=== PATIENT | female | born 1960 | race Caucasian/White ===

== ENCOUNTER 2017-08-16 10:55 | Emergency (ER) | payer OTHER ==
[~2017-08-16] VITALS: Ht 167.6 cm; Wt 85.3 kg
--- NOTE | 2017-08-16 10:55 | NUR ---
BIBRA 78 FROM [facility]AB C/O WEAKNESS AND HYPERGLYCEMIA, NJ=316DB/DL IN THE FIELD. A/OX 4, BREATHING EVEN AND UNLABORED. NO SOB, NAD, VITALS STABLE. NO NEURO DEFICITS. SAFETY AND COMFORT MEASURES IN PLACE. AWAITING MD ORDERS.
--- NOTE | 2017-08-16 11:10 | NUR ---
CDL B DRIVER AT BEDSIDE FOR BLOOD DRAW.
[2017-08-16 11:15] LABS: BASOPHILS # (AUTO) 0.1 /CMM (0.0-0.2); EOSINOPHILS % (AUTO) 2.2 % (0.0-6.0); HEMATOCRIT 45 % (33-45); HEMOGLOBIN 15.3 g/dL (11.5-14.8); LYMPHOCYTES # (AUTO) 1.9 /CMM (0.8-4.8); LYMPHOCYTES % (AUTO) 26.9 % (20.0-44.0); MEAN CORPUSCULAR HGB CONC 34 g/dl (31.0-36.0); MEAN CORPUSCULAR VOLUME 90 fL (82-100); MONOCYTES # (AUTO) 0.4 /CMM (0.1-1.30); MONOCYTES % (AUTO) 5.5 % (2.0-12.0); NEUTROPHILS # (AUTO) 4.3 /CMM (1.8-8.9); NEUTROPHILS % (AUTO) 64.4 % (43.0-81.0); PLATELET COUNT (AUTO) 240 /CMM (150-450); RDW COEFFICIENT OF VARIATION 12.8 (11.5-15.0); RED BLOOD CELL COUNT(AUTO) 5.06 MIL/uL (4.0-5.2); WHITE BLOOD COUNT (AUTO) 6.9 K/uL (4.3-11.0)
[2017-08-16 11:29] LABS: INR 1.02 (0.85-1.15)
[2017-08-16] MEDS ORDERED: IV NS 0.9% 1,000 ML BAG IV ONE ×2 (11:30→12:30)
[2017-08-16 11:32] LABS: ALANINE AMINOTRANSFERASE 106 U/L (12-78); ALBUMIN 2.6 g/dL (3.4-5.0); ALKALINE PHOSPHATASE 90 U/L (46-116); ASPARTATE AMINOTRANSFERASE 106 U/L (15-37); BILIRUBIN,DIRECT 0.3 mg/dL (0.0-0.2); BILIRUBIN,TOTAL 0.6 mg/dL (0.2-1.0); CALCIUM, SERUM 8.4 mg/dL (8.5-10.1); CARBON DIOXIDE 27 mmol/L (21-32); CHLORIDE 100 mmol/L (98-107); CREATININE 0.8 mg/dL (0.6-1.3); POTASSIUM 4.1 mmol/L (3.5-5.1); SODIUM SERUM 130 mmol/L (136-145); TOTAL PROTEIN, SERUM 6.7 g/dL (6.4-8.2); UREA NITROGEN, BLOOD 9 mg/dL (7-18)
[2017-08-16 11:33] LABS: TROPONIN I < 0.017 ng/mL (0.00-0.056)
[2017-08-16 11:34] LABS: GLUCOSE 499 mg/dL (74-106)
[2017-08-16] MEDS ORDERED: INSULIN REGULAR, HUMAN 100 UNIT/ML 10 ML VIAL ONE (11:48)
[2017-08-16] MEDS ORDERED: INSULIN REGULAR, HUMAN 100 UNIT/ML 10 ML VIAL SQ ONE (12:00)
--- NOTE | 2017-08-16 12:56 | NUR ---
repeat bs 330, dr. gregory informed, stating clear for discharge.
--- NOTE | 2017-08-16 13:03 | NUR ---
IV removed. Catheter intact and site benign. Pressure and 4x4 applied to site. No bleeding noted. Patient discharged to home in stable condition. Written and verbal after care instructions given. Patient verbalizes understanding of instruction.
[2017-08-16 13:04] VITALS: BP 127/86
== END 2017-08-16 13:06 | disposition home or self-care (01) ==
LOC: EDBD 10:56 → ER 10:56
DX: E11.65 Type 2 diabetes mellitus with hyperglycemia (principal); Z91.14 Patient's other noncompliance with medication regimen; I10 Essential (primary) hypertension; F17.210 Nicotine dependence, cigarettes, uncomplicated; Z90.710 Acquired absence of both cervix and uterus; Z79.4 Long term (current) use of insulin
CPT/HCPCS: 36415; 71045; 80048; 80076; 82962 ×2; 84484; 85025; 85730; 93005; 96360; 96361; 96372; 99285; 99406; A4606; J1815; J7030; Z7610

== ENCOUNTER 2019-12-04 20:55 | Inpatient (IN) | payer MEDICARE, OTHER ==
[~2019-12-04] VITALS: Ht 172.7 cm; Wt 81.6 kg
--- NOTE | 2019-12-04 21:05 | NUR ---
LEXUS FROM [facility] TOWARDS STAFF PLACED ON 5150, GD AND DTO @ 1820 ON 12/04/19. PT DENIED SI. PT WAS PLACED ON A MONITOR W/ CLOSE SUPERVISION OF A SITTER. WILL CONT TO MONITOR ,
--- NOTE | 2019-12-04 21:15 | NUR ---
RN SUP GAVE ROOM 213-1
--- NOTE | 2019-12-04 21:19 | NUR ---
COIVD SWAB COLLECTED AND SENT TO LAB
[2019-12-04 21:30] LABS: BASOPHILS # (AUTO) 0.1 /CMM (0.0-0.2); BASOPHILS % (AUTO) 0.8 % (0.0-2.0); EOSINOPHILS % (AUTO) 2.3 % (0.0-6.0); HEMATOCRIT 46 % (33-45); LYMPHOCYTES # (AUTO) 2.9 /CMM (0.8-4.8); LYMPHOCYTES % (AUTO) 33.2 % (20.0-44.0); MEAN CORPUSCULAR HGB CONC 33 g/dl (31.0-36.0); MEAN CORPUSCULAR VOLUME 93 fL (82-100); MONOCYTES # (AUTO) 0.7 /CMM (0.1-1.30); MONOCYTES % (AUTO) 7.6 % (2.0-12.0); NEUTROPHILS # (AUTO) 4.8 /CMM (1.8-8.9); NEUTROPHILS % (AUTO) 56.1 % (43.0-81.0); PLATELET COUNT (AUTO) 185 /CMM (150-450); RED BLOOD CELL COUNT(AUTO) 4.91 MIL/uL (4.0-5.2); WHITE BLOOD COUNT (AUTO) 8.6 K/uL (4.3-11.0)
[2019-12-04 22:01] LABS: CALCIUM, SERUM 8.7 mg/dL (8.5-10.1); CARBON DIOXIDE 28 mmol/L (21-32); CHLORIDE 99 mmol/L (98-107); CREATININE 0.7 mg/dL (0.6-1.3); GLUCOSE 317 mg/dL (74-106); POTASSIUM 3.9 mmol/L (3.5-5.1); SODIUM SERUM 134 mmol/L (136-145); UREA NITROGEN, BLOOD 15 mg/dL (7-18)
--- NOTE | 2019-12-04 22:08 | NUR ---
Dion cabrera in ED - 12/04/19 at 2208 by JOSUÉ KADEEM JAY TALKING TO DR. KIRK REGARDING PT ADMISSION.
[2019-12-04 22:11] LABS: ALANINE AMINOTRANSFERASE 64 U/L (12-78); ALBUMIN 3.1 g/dL (3.4-5.0); ALKALINE PHOSPHATASE 92 U/L (46-116); ASPARTATE AMINOTRANSFERASE 55 U/L (15-37); BILIRUBIN,DIRECT 0.1 mg/dL (0.0-0.2); BILIRUBIN,TOTAL 0.4 mg/dL (0.2-1.0); SALICYLATE 2.9 mg/dL (2.8-20.0); TOTAL PROTEIN, SERUM 6.8 g/dL (6.4-8.2)
[2019-12-04] MEDS ORDERED: INSULIN REGULAR, HUMAN 100 UNIT/ML 10 ML VIAL SQ ONE (22:30)
--- NOTE | 2019-12-04 22:32 | NUR ---
LAB CALLED REGARDING NEGATIVE COVID RESULT.
[2019-12-04] MEDS ORDERED: INSULIN REGULAR, HUMAN 100 UNIT/ML 10 ML VIAL ONE (22:39)
[2019-12-04 22:56] LABS: ACETAMINOPHEN < 2 ug/ml (10-30); ALCOHOL, BLOOD < 3 mg/dL (0-0)
[2019-12-04 23:13] LABS: APPEARANCE,URINE CLEAR (CLEAR); BILIRUBIN,URINE NEGATIVE (NEGATIVE); BLOOD, URINE NEGATIVE Ery/uL (NEGATIVE); COLOR,URINE YELLOW (YELLOW); KETONES,URINE NEGATIVE (NEGATIVE); LEUKOCYTE ESTERASE ,URINE NEGATIVE (NEGATIVE); NITRITE, URINE NEGATIVE (NEGATIVE); PROTEIN,URINE NEGATIVE (NEGATIVE); UGLUCOSE >=1000 mg/dL (NEGATIVE); UROBILINOGEN,URINE 0.2 EU/dL (0.2)
--- NOTE | 2019-12-04 23:37 | NUR ---
REPORT CALLED TO BRIANNA HUFF. WILL TRANSPORT PT TO ROOM 213.
[2019-12-04 23:45] LABS: BACTERIA,URINE None seen /HPF (None Seen); RBC,URINE 0-2 /HPF (0-2); SQUAMOUS EPITHELIAL CELL,UR Few /HPF (None Seen); WBC,URINE 0-2 /HPF (0-3)
[2019-12-05] VITALS: BP 146/77
[2019-12-05] MEDS ORDERED: DEXTROSE 50%-WATER 50 ML DISP.SYRIN IV PRN
--- NOTE | 2019-12-05 | NUR ---
GPS HEAD PIECE ASSEMBLER NOTES: ADMITTED A 59YO FEMALE FROM [facility] ON 5150 HOLD FOR DANGER TO OTHERS AND GRAVE DISABILITY. PER HOLD PATIENT WAS AGGRESSIVE, YELLING AND SCREAMING AT STAFF, BANGING AND REMOVING THINGS FROM THE WALL. PATIENT CAME THROUGH THE ED OF [facility] FOR MEDICAL CLEARANCE. UPON CLEARANCE PATIENT WAS THEN ADMITTED UNDER DR. SANTOS AND DR. K[facility]. UPON FACE TO FACE ASSESSMENT,PATIENT PRESENTS ALERT AND ORIENTED X3, SEEMED ALRIGHT AT FIRST BUT DURING INTERVIEW AND CONTRABANDING PATIENT STARTED TO YELL AT STAFF SINCE SHE WANTS TO KEEP HER PURSE AND SOME BELONGINGS AT HER BEDSIDE. EXPLAINED TO PATIENT THE UNIT RULES HOWEVER, PATIENT CONTINUES TO TALK TO STAFF IN A LOUD AND SARCASTIC MANNER. VITAL SIGNS TAKEN AND RECORDED. BELONGINGS AND CONTRABAND CHECKED. PATIENT REFUSED TO HAVE A FULL SKIN AND BODY ASSESSMENT, PT CLAIMS THAT SHE DOES NOT HAVE ANY WOUND OR SKIN CONDITION AT THE MOMENT. BLOOD GLUCOSE LEVELS CHECKED. DR. KIRK MADE AWARE OF THIS ADMISSION WELL FOR MEDICATION RECONCILIATION. Q15 MIN CHECKS INITIATED. CARE PLAN FORMULATED SPECIFIC FOR THE PATIENT. PATIENT PROVIDED WITH BEDSIDE COMMODE AND WALKER. PATIENT ALSO ADVISED OF THE HOLD. LIMIT SETTING DONE. REALITY RE-ORIENTATION DONE. WILL MONITOR PATIENT FOR MOOD, SAFETY AND BEHAVIOR.
[2019-12-05] MEDS ORDERED: MAGNESIUM HYDROXIDE 30 ML UDC PO PRN ×2 (00:30→13:00)
[2019-12-05] MEDS ORDERED: ACETAMINOPHEN 325 MG TABLET PO PRN ×3 (00:30→13:00)
[2019-12-05] MEDS ORDERED: MAG HYDROX/AL HYDROX/SIMETH 30 ML UDC PO PRN (00:30)
[2019-12-05] MEDS ORDERED: LORAZEPAM 0.5 MG TABLET PO PRN (00:30)
[2019-12-05] MEDS ORDERED: BLOOD SUGAR DIAGNOSTIC 1 EACH STRIP IN ONE (01:00)
[2019-12-05] MEDS ORDERED: QUET50TA PO (01:19)
[2019-12-05] MEDS ORDERED: ESCI5TAB PO (01:19)
[2019-12-05] MEDS ORDERED: INSU100C10 SQ (01:19)
[2019-12-05] MEDS ORDERED: INSU100I26 SQ (01:19)
[2019-12-05] MEDS ORDERED: TRAM50TA2 PO (01:19)
[2019-12-05] MEDS ORDERED: NA P133E RC (01:19)
[2019-12-05] MEDS ORDERED: GABA300C PO (01:19)
[2019-12-05] MEDS ORDERED: OMEP20CA15 PO (01:19)
[2019-12-05] MEDS ORDERED: BUSP5TAB3 PO (01:19)
[2019-12-05] MEDS ORDERED: BISA10SU11 RC (01:19)
[2019-12-05] MEDS ORDERED: HYDR-4384 PO (01:19)
[2019-12-05] MEDS ORDERED: ACET-868 PO (07:12)
[2019-12-05] MEDS ORDERED: MAGN400O6 PO (07:12)
[2019-12-05] MEDS ORDERED: ACET-2605 PO (07:12)
[2019-12-05 08:00] VITALS: BP 134/63
[2019-12-05] MEDS: BLOOD SUGAR DIAGNOSTIC 1 EACH STRIP VI SCH ×4 (08:29→22:02)
--- NOTE | 2019-12-05 09:17 | NUR ---
GPS/RN-NOTES NOTED PATIENT WITH CRYING ,AGITATED ,ANGRY FOCUSING ON GOING OUT STATED" I DON'T BELONG HERE," REDIRECTED AND OFFERED ATIVAN BUT PATIENT SCREAM AND YELLS TO THE SHADING PAINTER. STATED I DON'T TAKE ANY PILLS IF I'M ANGRY,LEAVE ME ALONE I DON'T NEED YOUR MEDICATION". PATIENT BS WAS 229 MG/DL, 6 UNITS OF REGULAR INSULIN NOT GIVEN DUE TO PATIENT REFUSED AND DID NOT EAT HER BREAKFAST.ENCOURAGED AND EXPLAINED RISK AND BENEFITS OF EATING AND GETTING THE INSULIN COVERAGE BUT PATIENT GETS ANGRY AT HE SHADING PAINTER.OFFERED X3 . WILL LET MATE SHIP MADE AWARE OF THE REFUSAL. ALL NEEDS ATTENDED AND ANTICIPATED. WILL CONT. MONITORING FOR SAFETY AND BEHAVIOR.PATIENT ABLE TO AMBULATE IN THE BATHROOM USING WALKER.
[2019-12-05] MEDS: NICOTINE PATCH (21MG) 21 MG PATCH.TD24 TD SCH (09:36)
--- NOTE | 2019-12-05 09:38 | NUR ---
GPS/RN-NOTES PATIENT FINALLY AGREED TO TAKE ATIVAN 0.5MG P.O PRN ORDER. WILL CONT. MONITORING FOR SAFETY AND BEHAVIOR.
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
[2019-12-05] MEDS: LINAGLIPTIN 5 MG TABLET PO SCH (12:00)
[2019-12-05] MEDS ORDERED: SITAGLIPTIN PHOSPHATE 50 MG TABLET PO SCH (12:00)
--- NOTE | 2019-12-05 12:19 | NUR ---
GPS/RN-NOTES PATIENT CRYING, AGITATED YELLING IN THE ROOM COMMERCIAL LIGHT FIXTURE ASSEMBLER CAME TO THE ROOM TO HELP BUT PATIENT SCREAMS AND CURSING AT THE COMMERCIAL LIGHT FIXTURE ASSEMBLER. DR. SANTOS IN THE UNIT WITH VERBAL ORDER OF ATIVAN 1MG X1, COGENTIN 1MG IM X1 AND HALDOL 5MG IM X1. NOTED AND CARRIED OUT.
--- NOTE | 2019-12-05 12:25 | NUR ---
Dr. Head called and reconciled the meds.
[2019-12-05] MEDS ORDERED: BENZTROPINE MESYLATE (2MG/2ML) 2 MG/2 ML AMPUL IM ONE (12:30)
[2019-12-05] MEDS ORDERED: LORAZEPAM INJ 2 MG/ML VIAL IM ONE (12:30)
[2019-12-05] MEDS ORDERED: HALOPERIDOL LACTATE INJ 5 MG/ML VIAL IM ONE (12:30)
--- NOTE | 2019-12-05 12:30 | NUR ---
GPS/RN-NOTES DR. ONEAL MADE AWARE OF PATIENT BS OF 229 MG/DL AND REFUSED THE 6 UNITS COVERAGE.
[2019-12-05] MEDS ORDERED: GABAPENTIN 300 MG CAPSULE PO SCH (13:00)
[2019-12-05] MEDS: HALOPERIDOL 5 MG TABLET PO SCH ×2 (13:00→17:17)
[2019-12-05] MEDS: GABAPENTIN 300 MG CAPSULE PO SCH ×2 (13:00→17:17)
[2019-12-05] MEDS: busPIRone 5 MG TABLET PO SCH ×2 (13:00→17:17)
[2019-12-05] MEDS ORDERED: NA PHOS,M-B/NA PHOS,DI-BA 1 EA ENEMA RC PRN (13:00)
[2019-12-05] MEDS ORDERED: TRAMADOL HCL 50 MG TABLET PO PRN (13:00)
[2019-12-05] MEDS ORDERED: BISACODYL SUPP (10 MG) 10 MG/SUPP.RECT SUPP.RECT RC PRN (13:00)
[2019-12-05] MEDS ORDERED: MISCELLANEOUS MED 1 EA EA PO PRN (13:00)
[2019-12-05 16:00] VITALS: BP 144/86
[2019-12-05] MEDS: INSULIN REGULAR, HUMAN 100 UNIT/ML 3 ML VIAL SQ PRN (17:27)
[2019-12-05 20:00] VITALS: BP 114/59
[2019-12-05] MEDS: INSULIN GLARGINE, 100 UNIT/ML CARTRIDGE SQ SCH (22:08)
[2019-12-05] MEDS: *INSULIN REGULAR(HUMULIN R)HUM 100 UNIT/ML VIAL SQ PRN (22:12)
--- NOTE | 2019-12-05 22:18 | NUR ---
GPS RN NOTES: ACCU CHEK DONE AT 2200, BS 197MG/DL. INSULIN ADMINISTERED ORDERED. PT CALM AND COOPERATIVE. NO S/S OF DISTRESS. WILL CONTINUE TO MONITOR.
--- NOTE | 2019-12-06 06:52 | NUR ---
GPS RN CLOSING NOTES: PT IS LAYING ON BED SLEEPING. NO BEHAVIORAL ISSUES THIS SHIFT. PT SLEPT FOR 8 HR. NO S/S OF DISTRESS, RESPIRATION EVEN AND UNLABORED WITH EQUAL RISE AND FALL OF THE CHEST ON ROOM AIR. PT IS MED COMPLIANT. ALL PT CARE NEEDS MET ANTICIPATED. WILL CONTINUE TO MONITOR AND ENDORSE TO AM SHIFT
[2019-12-06] MEDS: BLOOD SUGAR DIAGNOSTIC 1 EACH STRIP VI SCH ×4 (07:33→21:50)
[2019-12-06 07:40] LABS: BASOPHILS # (AUTO) 0.1 /CMM (0.0-0.2); BASOPHILS % (AUTO) 1.3 % (0.0-2.0); EOSINOPHILS % (AUTO) 1.8 % (0.0-6.0); HEMATOCRIT 47 % (33-45); HEMOGLOBIN 15.8 g/dL (11.5-14.8); LYMPHOCYTES # (AUTO) 2.6 /CMM (0.8-4.8); LYMPHOCYTES % (AUTO) 33.9 % (20.0-44.0); MEAN CORPUSCULAR HGB CONC 33 g/dl (31.0-36.0); MEAN CORPUSCULAR VOLUME 93 fL (82-100); MONOCYTES # (AUTO) 0.6 /CMM (0.1-1.30); NEUTROPHILS # (AUTO) 4.2 /CMM (1.8-8.9); PLATELET COUNT (AUTO) 183 /CMM (150-450); RED BLOOD CELL COUNT(AUTO) 5.11 MIL/uL (4.0-5.2); WHITE BLOOD COUNT (AUTO) 7.7 K/uL (4.3-11.0)
[2019-12-06] MEDS: PANTOPRAZOLE 40 MG TABLET.DR PO SCH (07:54)
[2019-12-06 08:00] VITALS: BP 148/77
[2019-12-06] MEDS: LINAGLIPTIN 5 MG TABLET PO SCH (08:00)
[2019-12-06] MEDS: GABAPENTIN 300 MG CAPSULE PO SCH ×3 (08:00→16:32)
[2019-12-06] MEDS: busPIRone 5 MG TABLET PO SCH ×3 (08:00→16:33)
[2019-12-06] MEDS: NICOTINE PATCH (21MG) 21 MG PATCH.TD24 TD SCH (08:01)
[2019-12-06] MEDS: HALOPERIDOL 5 MG TABLET PO SCH ×3 (08:01→16:33)
[2019-12-06 08:08] LABS: THYROID STIMULATING HORMONE 0.486 uIU/mL (0.358-3.74); URIC ACID 5.1 mg/dL (2.6-7.2)
[2019-12-06 08:30] LABS: CALCIUM, SERUM 8.7 mg/dL (8.5-10.1); CREATININE 0.6 mg/dL (0.6-1.3); MAGNESIUM 1.9 mg/dL (1.8-2.4); PHOSPHORUS 3.3 mg/dL (2.5-4.9); POTASSIUM 4.2 mmol/L (3.5-5.1)
[2019-12-06] MEDS: INSULIN REGULAR, HUMAN 100 UNIT/ML 3 ML VIAL SQ PRN ×3 (08:43→17:18)
[2019-12-06] MEDS: LORAZEPAM 0.5 MG TABLET PO PRN (15:29)
--- NOTE | 2019-12-06 15:29 | NUR ---
GPS/RN-NOTES PATIENT REQUESTING ATIVAN FOR ANXIETY. ATIVAN 1MG P.O GIVEN PRN ORDER. WILL CONT. MONITORING FOR SAFETY AND BEHAVIOR.
[2019-12-06 16:00] VITALS: BP 147/88
--- NOTE | 2019-12-06 16:37 | NUR ---
GPS/RN-NOTES PATIENT IN THE DAY ROOM WATCHING TV,CALM,NO ACUTE DISTRESS NOTED.
[2019-12-06 21:00] VITALS: BP 116/64
[2019-12-06] MEDS: INSULIN GLARGINE, 100 UNIT/ML CARTRIDGE SQ SCH (21:42)
[2019-12-06] MEDS: *INSULIN REGULAR(HUMULIN R)HUM 100 UNIT/ML VIAL SQ PRN (21:43)
--- NOTE | 2019-12-06 21:51 | NUR ---
GPS RN NOTE: PT BLOOD SUGAR AT 2135, 268MG/DL. HS LANTUS ADMINISTERED. REGULAR INSULIN 6UNITS ADMINISTERED PER SLIDING SCALE ORDER. WILL CONTINUE TO MONITOR.
--- NOTE | 2019-12-07 06:35 | NUR ---
GPS RN CLOSING NOTES: PT IS LAYING ON BED SLEEPING. NO BEHAVIORAL ISSUES THIS SHIFT. PT SLEPT FOR 8 HR. NO S/S OF DISTRESS, RESPIRATION EVEN AND UNLABORED WITH EQUAL RISE AND FALL OF THE CHEST ON ROOM AIR. ALL PT CARE NEEDS MET ANTICIPATED. WILL CONTINUE TO MONITOR AND ENDORSE TO AM SHIFT
[2019-12-07] MEDS: PANTOPRAZOLE 40 MG TABLET.DR PO SCH (07:56)
[2019-12-07] MEDS: BLOOD SUGAR DIAGNOSTIC 1 EACH STRIP VI SCH ×4 (07:56→21:33)
[2019-12-07] MEDS: INSULIN REGULAR, HUMAN 100 UNIT/ML 3 ML VIAL SQ PRN ×3 (07:58→16:56)
[2019-12-07 08:00] VITALS: BP 149/92
[2019-12-07] MEDS: NICOTINE PATCH (21MG) 21 MG PATCH.TD24 TD SCH (08:00)
[2019-12-07] MEDS: busPIRone 5 MG TABLET PO SCH ×3 (08:02→16:44)
[2019-12-07] MEDS: LINAGLIPTIN 5 MG TABLET PO SCH (08:02)
[2019-12-07] MEDS: GABAPENTIN 300 MG CAPSULE PO SCH ×3 (08:02→16:44)
[2019-12-07] MEDS: HALOPERIDOL 5 MG TABLET PO SCH (08:02)
[2019-12-07] MEDS ORDERED: diphenhydrAMINE HCL 50 MG/ML VIAL IV ONE (10:30)
--- NOTE | 2019-12-07 10:33 | NUR ---
RN NOTES PT ALIZA ND EVALUATED BY DR. SANTOS, PT CONCERNED ABOUT HER TONGUE. MD ORDERED BENADRYL 50MG IM NOW. WILL CONTINUE TO MONITOR.
--- NOTE | 2019-12-07 10:47 | NUR ---
RN NOTES IM BENADRYL 50MG ADMINISTERED TO LEFT BUTTOCK MUSCLE. PT AWARE AND AWAITING FOR EFFECTIVENESS. WILL REASSESS.
--- NOTE | 2019-12-07 11:07 | NUR ---
RN NOTES PT REPORTED FEELS BETTER. PT ALSO RECITED ABC'S. /DANIELLE IN THE UNIT AND MADE HER AWARE OF EFFECTIVENESS. ALSO ORDERED TO DISCONTINUE HALDOL, START COGENTIN 0.5MG TID AND SHE WILL PUT ORDER FOR RISPERDAL FOR 5PM.
[2019-12-07] MEDS ORDERED: BENZTROPINE MESYLATE (1 MG) 1 MG TABLET PO SCH (13:00)
[2019-12-07 16:00] VITALS: BP 136/90
--- NOTE | 2019-12-07 16:38 | NUR ---
RN NOTES PT REPORTED PROTRUDING TONGUE AND DIFFICULTY SPEAKING AGAIN AT THIS TIME. CALLED DR. SANTOS AND ORDERD TO MAKE COGENTIN 1MG PO TO TID AND HS. BUT GIVE COGENTIN IM 2MG NOW, SKIP 5PM 1MG COGENTIN PO. THEN CONTINUE BACK TO COGENTIN HS. DISCONTINUE RISPERDAL WELL. CHARGE NURSE MADE AWARE WELL.
[2019-12-07] MEDS ORDERED: BENZTROPINE MESYLATE (2MG/2ML) 2 MG/2 ML AMPUL IM ONE (16:40)
[2019-12-07] MEDS: BENZTROPINE MESYLATE (1 MG) 1 MG TABLET PO SCH ×2 (16:45→21:32)
--- NOTE | 2019-12-07 16:53 | NUR ---
RN NOTES ADMINISTERED COGENTIN 2MG IM TO RIGHT BUTTOCK/MUSCLE. PT AWARE AND COOPERATIVE. WILL WAIT FOR EFFECTIVENESS.
[2019-12-07] MEDS ORDERED: risperiDONE 1 MG TABLET PO SCH (17:00)
[2019-12-07 19:35] VITALS: BP 143/70
[2019-12-07] MEDS: TEMAZEPAM 7.5 MG CAPSULE PO PRN (21:32)
[2019-12-07] MEDS: INSULIN GLARGINE, 100 UNIT/ML CARTRIDGE SQ SCH (21:34)
[2019-12-08] MEDS: HYDROCODONE/APAP 5/325MG TABLET PO PRN (02:01)
[2019-12-08] MEDS: BLOOD SUGAR DIAGNOSTIC 1 EACH STRIP VI SCH ×4 (07:25→21:48)
[2019-12-08] MEDS: INSULIN REGULAR, HUMAN 100 UNIT/ML 3 ML VIAL SQ PRN ×2 (07:32→11:55)
[2019-12-08] MEDS: glipiZIDE 10 MG TABLET PO SCH ×2 (07:58→17:12)
[2019-12-08] MEDS: PANTOPRAZOLE 40 MG TABLET.DR PO SCH (07:58)
[2019-12-08 08:00] VITALS: BP 142/75
[2019-12-08] MEDS: LINAGLIPTIN 5 MG TABLET PO SCH (08:44)
[2019-12-08] MEDS: busPIRone 5 MG TABLET PO SCH ×3 (08:44→17:50)
[2019-12-08] MEDS: NICOTINE PATCH (21MG) 21 MG PATCH.TD24 TD SCH (08:44)
[2019-12-08] MEDS: GABAPENTIN 300 MG CAPSULE PO SCH ×3 (08:44→17:11)
[2019-12-08] MEDS: BENZTROPINE MESYLATE (1 MG) 1 MG TABLET PO SCH ×4 (08:45→21:47)
[2019-12-08] MEDS ORDERED: risperiDONE 1 MG TABLET PO SCH (09:00)
[2019-12-08] MEDS: risperiDONE 0.25 MG TABLET PO SCH ×2 (12:07→17:12)
[2019-12-08 16:00] VITALS: BP 138/86
[2019-12-08 19:45] VITALS: BP 148/82
[2019-12-08] MEDS: INSULIN GLARGINE, 100 UNIT/ML CARTRIDGE SQ SCH (21:50)
[2019-12-08] MEDS: *INSULIN REGULAR(HUMULIN R)HUM 100 UNIT/ML VIAL SQ PRN (21:52)
[2019-12-08 22:32] VITALS: BP 112/79
[2019-12-08] MEDS: TEMAZEPAM 7.5 MG CAPSULE PO PRN (22:35)
--- NOTE | 2019-12-08 22:36 | NUR ---
GPS RN NOTES: INSOMNIA PT C/O OF UNABLE TO SLEEP. PT REQUESTED SLEEPING MEDICATION. VITALS CHECKED WNL. OFFERED RESTORIL 7.5MG PO PRN ORDERED. PT AGREED AND TOLERATED MEDICATION WELL. CONTIN UE TO MONITOR.
[2019-12-09 02:10] VITALS: BP 113/62
[2019-12-09] MEDS: HYDROCODONE/APAP 5/325MG TABLET PO PRN ×3 (02:15→21:38)
--- NOTE | 2019-12-09 02:17 | NUR ---
GPS RN NOTES: PAIN PT C/O OF 12/03 LOWER BACK PAIN. VITALS CHECKED WNL. OFFERED NORCO PRN PO ORDERED. PT AGREED AND TOLERATED MEDICATION ELL. CONTINUE TO MONITOR.
[2019-12-09] MEDS: BLOOD SUGAR DIAGNOSTIC 1 EACH STRIP VI SCH ×4 (07:30→21:22)
[2019-12-09] MEDS: INSULIN REGULAR, HUMAN 100 UNIT/ML 3 ML VIAL SQ PRN ×3 (07:33→17:20)
[2019-12-09] MEDS: glipiZIDE 10 MG TABLET PO SCH ×2 (07:53→17:04)
[2019-12-09] MEDS: PANTOPRAZOLE 40 MG TABLET.DR PO SCH (07:53)
[2019-12-09 08:00] VITALS: BP 93/58
[2019-12-09] MEDS: BENZTROPINE MESYLATE (1 MG) 1 MG TABLET PO SCH ×4 (08:10→21:07)
[2019-12-09] MEDS: GABAPENTIN 300 MG CAPSULE PO SCH ×3 (08:10→17:04)
[2019-12-09] MEDS: NICOTINE PATCH (21MG) 21 MG PATCH.TD24 TD SCH (08:10)
[2019-12-09] MEDS: LINAGLIPTIN 5 MG TABLET PO SCH (08:10)
[2019-12-09] MEDS: busPIRone 5 MG TABLET PO SCH ×3 (08:10→17:04)
[2019-12-09] MEDS: risperiDONE 0.25 MG TABLET PO SCH ×3 (08:11→17:04)
--- NOTE | 2019-12-09 08:44 | NUR ---
RN NOTE: PAIN PT C/O 9/10 LOWER BACK AND BILAT KNEES PAIN. MEDICATED WITH NORCO PO PRN ORDERED
--- NOTE | 2019-12-09 14:57 | NUR ---
COORDINATION OF CARE: DEMARCUS faxed patient's referral packet to [facility] [address] [place] [address] ([phone] [phone]) attention to Pv Design Engineer -John. Patient is accepted to the facility for placement upon discharge.
[2019-12-09 16:00] VITALS: BP 127/80
[2019-12-09] MEDS: METFORMIN 500 MG TABLET PO SCH (17:04)
[2019-12-09 19:50] VITALS: BP 135/74
[2019-12-09] MEDS: INSULIN GLARGINE, 100 UNIT/ML CARTRIDGE SQ SCH (21:17)
[2019-12-09] MEDS: *INSULIN REGULAR(HUMULIN R)HUM 100 UNIT/ML VIAL SQ PRN (21:19)
--- NOTE | 2019-12-09 21:45 | NUR ---
GPS RN NOTE: PAIN PT COMPLAINED OF 9/10 KNEE AND LEG PAIN, REQUESTED NORCO, ADMIN NORCO PRN @ 2022. WILL REASSESS AND CONTINUE TO MONITOR Q15MIN FOR SAFETY AND BEHAVIOR.
[2019-12-09] MEDS: TEMAZEPAM 7.5 MG CAPSULE PO PRN (22:53)
--- NOTE | 2019-12-09 22:58 | NUR ---
GPS RN NOTE: INSOMNIA PT COMPLAINED OF HAVING TROUBLE SLEEPING, REQUESTED IF SHE WAS ABLE TO TAKE SOMETHING FOR IT. VSS, BP: 115/52, HR 86, O2: 98% RA, RR: 19. ADMIN RESTORIL PRN @ 2253, WILL REASSESS AND CONTINUE TO MONITOR Q15MIN FOR SAFETY AND BEHAVIOR
[2019-12-10] MEDS: LORAZEPAM 0.5 MG TABLET PO PRN ×2 (01:46→15:11)
--- NOTE | 2019-12-10 01:52 | NUR ---
GPS RN NOTE: ANXIETY PT C/O OF FEELING ANXIOUS. RESTLESS, INABILITY TO SIT STILL. ADMIN ATIVAN PRN @ 0146. WILL REASSESS AND CONTINUE TO MONITOR Q15MIN FOR SAFETY AND BEHAVIOR
[2019-12-10] MEDS: BLOOD SUGAR DIAGNOSTIC 1 EACH STRIP VI SCH ×4 (06:50→21:45)
[2019-12-10 08:00] VITALS: BP 114/59
[2019-12-10] MEDS: LINAGLIPTIN 5 MG TABLET PO SCH (08:08)
[2019-12-10] MEDS: NICOTINE PATCH (21MG) 21 MG PATCH.TD24 TD SCH (08:09)
[2019-12-10] MEDS: GABAPENTIN 300 MG CAPSULE PO SCH ×3 (08:09→16:42)
[2019-12-10] MEDS: PANTOPRAZOLE 40 MG TABLET.DR PO SCH (08:09)
[2019-12-10] MEDS: glipiZIDE 10 MG TABLET PO SCH ×2 (08:09→16:42)
[2019-12-10] MEDS: risperiDONE 0.25 MG TABLET PO SCH ×3 (08:09→16:47)
[2019-12-10] MEDS: busPIRone 5 MG TABLET PO SCH ×3 (08:09→16:43)
[2019-12-10] MEDS: BENZTROPINE MESYLATE (1 MG) 1 MG TABLET PO SCH ×4 (08:10→21:32)
[2019-12-10] MEDS: METFORMIN 500 MG TABLET PO SCH ×2 (08:18→16:43)
[2019-12-10] MEDS: INSULIN REGULAR, HUMAN 100 UNIT/ML 3 ML VIAL SQ PRN (11:36)
[2019-12-10] MEDS: HYDROCODONE/APAP 5/325MG TABLET PO PRN (12:39)
--- NOTE | 2019-12-10 12:41 | NUR ---
GPS RN NOTE: PAIN PT COMPLAINED OF KNEE AND LEG PAIN, REQUESTED NORCO, ADMIN NORCO 5-325 2 TAB GIVEN PRN WILL REASSESS AND CONTINUE TO MONITOR Q15MIN FOR SAFETY AND BEHAVIOR.WAS PULED ONE TAB THER SECOND ONE .
--- NOTE | 2019-12-10 13:43 | NUR ---
PROBABLE CAUSE HEARING: Patient had probable cause hearing today which was upheld for grave disability.
[2019-12-10 16:00] VITALS: BP 128/61
[2019-12-10 20:00] VITALS: BP 134/88
[2019-12-10] MEDS: INSULIN GLARGINE, 100 UNIT/ML CARTRIDGE SQ SCH (21:39)
[2019-12-10] MEDS: *INSULIN REGULAR(HUMULIN R)HUM 100 UNIT/ML VIAL SQ PRN (21:40)
[2019-12-11] MEDS: HYDROCODONE/APAP 5/325MG TABLET PO PRN ×3 (04:40→21:34)
--- NOTE | 2019-12-11 04:45 | NUR ---
RN NOTES PATIENT COMPLAINING OF LEG PAIN 10/10, PRN NORCO 5/325 ADMINISTERED. WILL CONTINUE TO MONITOR.
[2019-12-11] MEDS: PANTOPRAZOLE 40 MG TABLET.DR PO SCH (07:53)
[2019-12-11] MEDS: BLOOD SUGAR DIAGNOSTIC 1 EACH STRIP VI SCH ×4 (07:53→21:03)
[2019-12-11] MEDS: glipiZIDE 10 MG TABLET PO SCH ×2 (07:54→16:26)
[2019-12-11] MEDS: busPIRone 5 MG TABLET PO SCH ×3 (08:00→16:27)
[2019-12-11] MEDS: BENZTROPINE MESYLATE (1 MG) 1 MG TABLET PO SCH ×4 (08:00→21:15)
[2019-12-11] MEDS: METFORMIN 500 MG TABLET PO SCH ×2 (08:00→16:27)
[2019-12-11] MEDS: GABAPENTIN 300 MG CAPSULE PO SCH ×3 (08:00→16:27)
[2019-12-11] MEDS: LINAGLIPTIN 5 MG TABLET PO SCH (08:00)
[2019-12-11] MEDS: NICOTINE PATCH (21MG) 21 MG PATCH.TD24 TD SCH (08:01)
[2019-12-11] MEDS: risperiDONE 0.25 MG TABLET PO SCH ×3 (08:01→16:27)
[2019-12-11 08:43] VITALS: BP 105/61
--- NOTE | 2019-12-11 12:17 | NUR ---
GPS RN NOTE: PAIN PT COMPLAINED OF KNEE AND LEG PAIN 12/03, REQUESTED NORCO, ADMIN NORCO 5-325 2 TAB GIVEN PRN WILL REASSESS AND CONTINUE TO MONITOR Q15MIN FOR SAFETY AND BEHAVIOR.
[2019-12-11 16:00] VITALS: BP 144/91
[2019-12-11 19:57] VITALS: BP 128/67
[2019-12-11] MEDS: *INSULIN REGULAR(HUMULIN R)HUM 100 UNIT/ML VIAL SQ PRN (21:05)
[2019-12-11] MEDS: INSULIN GLARGINE, 100 UNIT/ML CARTRIDGE SQ SCH (21:06)
--- NOTE | 2019-12-11 21:34 | NUR ---
GPS/RN NOTES: PATIENT COMPLAINED OF LEG AND KNEE PAIN 8/10, PRN NORCO 5/325 ADMINISTERED 2TABS ORDERED. VS STABLE. WILL CONTINUE TO MONITOR ACCORDINGLY.
[2019-12-11] MEDS: TEMAZEPAM 7.5 MG CAPSULE PO PRN (22:34)
--- NOTE | 2019-12-11 22:34 | NUR ---
GPS/RN NOTES: PATIENT REQUESTED OF SLEEPING MEDICATION. VS STABLE AND WNL. PRN RESTORIL 7.5MG 1 CAP ADMINISTERED ORDERED. WILL CONTINUE TO MONITOR ACCORDINGLY.
[2019-12-12] MEDS: BLOOD SUGAR DIAGNOSTIC 1 EACH STRIP VI SCH (07:43)
[2019-12-12 08:00] VITALS: BP 90/63
--- NOTE | 2019-12-12 08:13 | NUR ---
SW DISCHARGE NOTE: Patient will be discharged to [facility] [address] [place] [address] ([phone]) via Ambulance transportation at 11:00am today. Conference Center Manager spoke with Lorena, Director Of Corporate Responsibility at the facility, who confirmed patient will be accepted at their facility today. Patient is alert and oriented x4. Patient is not able to plan for self-care at this time but is willing to accept care provided for her at the facility. Patient denies suicidal or homicidal ideation. Patient is aware and agreeable with discharge plans. Patient presents with euthymic mood and congruent affect. Patient will follow-up with Psychiatrist Dr. Joy [address] [facility], [place] [address] ([phone]) and Circular Sawyer Helper Dr. Arteaga [address] [place] [address] ([phone]). Patient does not have a support system or family involved in her care.
[2019-12-12] MEDS: BENZTROPINE MESYLATE (1 MG) 1 MG TABLET PO SCH (08:23)
[2019-12-12] MEDS: GABAPENTIN 300 MG CAPSULE PO SCH (08:23)
[2019-12-12] MEDS: NICOTINE PATCH (21MG) 21 MG PATCH.TD24 TD SCH (08:23)
[2019-12-12] MEDS: METFORMIN 500 MG TABLET PO SCH (08:23)
[2019-12-12] MEDS: LINAGLIPTIN 5 MG TABLET PO SCH (08:23)
[2019-12-12] MEDS: risperiDONE 0.25 MG TABLET PO SCH (08:24)
[2019-12-12] MEDS: busPIRone 5 MG TABLET PO SCH (08:24)
[2019-12-12] MEDS: PANTOPRAZOLE 40 MG TABLET.DR PO SCH (08:24)
[2019-12-12] MEDS: glipiZIDE 10 MG TABLET PO SCH (08:24)
[2019-12-12] MEDS: HYDROCODONE/APAP 5/325MG TABLET PO PRN (08:28)
[2019-12-12] MEDS: LORAZEPAM 0.5 MG TABLET PO PRN (08:28)
--- NOTE | 2019-12-12 09:00 | NUR ---
gps avionics systems repairer: notes pt for discharge to snf at 1000 per director social service. order received from dr. medina per cn re: discharge to snf. pt has no family involved in her care per s.w. pt aware and agreed of discharge to snf. will continue to monitor.
--- NOTE | 2019-12-12 09:20 | NUR ---
gps hoop riveter: notes called [facility] 2x and was on hold for more than 10 minutes, per bobbin cleaning machine operator, crusher supervisor will call me back for report.
--- NOTE | 2019-12-12 09:30 | NUR ---
gps classroom paraprofessional: notes discharge instructions given to pt and verbalized understanding. ambulance to pick her up at 1000 am. pt stable for discharge. hold was discontinued, pt denied si/hi and denied auditory/visual hallucinations at this time. will continue to monitor.
--- NOTE | 2019-12-12 09:45 | NUR ---
gps byproducts extractor: notes [facility] returned call and report given to marilu (rn) for continuity of care.
--- NOTE | 2019-12-12 10:10 | NUR ---
gps moisture conditioner operator: notes ambulance here to warehouse picker pt, report given to one of the crew.
--- NOTE | 2019-12-12 10:19 | NUR ---
gps laser specialist: discharged discharge to snf via ambulance in stable condition. pt denied si/hi and denied auditory/visual hallucinations. all valuables returned to pt. vss
== END 2019-12-12 10:20 | DRG 885 ==
LOC: ER 20:57 → GPS 21:51
PROVIDERS: ADMIT Psychiatry & Neurology Psychosomatic Medicine; ATTEND Internal Medicine Nephrology
DX: F25.0 Schizoaffective disorder, bipolar type (principal); E43 Unspecified severe protein-calorie malnutrition; E87.1 Hypo-osmolality and hyponatremia; F29 Unspecified psychosis not due to a substance or known physiological condition; F39 Unspecified mood [affective] disorder; Z68.27 Body mass index [BMI] 27.0-27.9, adult; G31.84 Mild cognitive impairment of uncertain or unknown etiology; I10 Essential (primary) hypertension; J44.9 Chronic obstructive pulmonary disease, unspecified; K21.9 Gastro-esophageal reflux disease without esophagitis; E78.5 Hyperlipidemia, unspecified; E11.65 Type 2 diabetes mellitus with hyperglycemia; F17.210 Nicotine dependence, cigarettes, uncomplicated; F32.9 Major depressive disorder, single episode, unspecified; F41.9 Anxiety disorder, unspecified; Z90.710 Acquired absence of both cervix and uterus; G89.29 Other chronic pain; F12.90 Cannabis use, unspecified, uncomplicated; Z91.81 History of falling; Z73.6 Limitation of activities due to disability
CPT/HCPCS: 36415; 80048-TC; 80061-TC; 80076-TC; 80305; 81000-TC; 82962-TC; 83735-TC; 84100-TC; 84443-TC; 84550-TC; 85025-TC; 87081-TC; 97116-TC; 97530-TC; G0480; J0515; J1200; J1630; J1815; J2060

== ENCOUNTER 2022-01-03 18:22 | Inpatient (IN) | payer MEDICARE, OTHER ==
[~2022-01-03] VITALS: Ht 172.7 cm; Wt 117.5 kg
[~2022-01-03 18:22] MED LIST: ACET-2605 PO; ACET-868 PO; BISA10SU11 RC; GABA300C PO; HYDR-4384 PO; INSU100C10 SQ; INSU100I26 SQ; MAGN400O6 PO; NA P133E RC; OMEP20CA15 PO; TRAM50TA2 PO
--- NOTE | 2022-01-03 19:20 | NUR ---
NAWAF BETHEA 99 FROM [facility] FOR SOB. PT A/OX2. ON NRB 15LPM SATTING AT 98%. CONNECTED PT TO POX AND MONITOR. SAFETY MEASURES IN PLACE.
--- NOTE | 2022-01-03 19:24 | NUR ---
COVID ANTIGEN SWAB COLLECTED AND SENT TO LAB [facility] #18G S/L PT SATTING 98% ON NRB 15LPM
--- NOTE | 2022-01-03 19:47 | NUR ---
DR. MARTINEZ DO AT PT'S BEDSIDE
[2022-01-03 19:52] LABS: BASOPHILS # (AUTO) 0.1 K/uL (0.0-0.2); BASOPHILS % (AUTO) 0.3 % (0.0-2.0); EOSINOPHILS % (AUTO) 0.1 % (0.0-6.0); HEMATOCRIT 32 % (33-45); HEMOGLOBIN 10.7 g/dL (11.5-14.8); LYMPHOCYTES # (AUTO) 1.3 K/uL (0.8-4.8); LYMPHOCYTES % (AUTO) 5.8 % (20.0-44.0); MEAN CORPUSCULAR HGB CONC 33 g/dl (31.0-36.0); MEAN CORPUSCULAR VOLUME 92 fL (82-100); MONOCYTES # (AUTO) 1.3 K/uL (0.1-1.30); MONOCYTES % (AUTO) 6.2 % (2.0-12.0); NEUTROPHILS # (AUTO) 18.9 K/uL (1.8-8.9); NEUTROPHILS % (AUTO) 87.6 % (43.0-81.0); PLATELET COUNT (AUTO) 288 K/uL (150-450); RED BLOOD CELL COUNT(AUTO) 3.53 MIL/uL (4.0-5.2); WHITE BLOOD COUNT (AUTO) 21.6 K/uL (4.3-11.0)
[2022-01-03 19:54] LABS: CALCIUM, SERUM 7.6 mg/dL (8.5-10.1); CARBON DIOXIDE 33 mmol/L (21-32); CHLORIDE 98 mmol/L (98-107); CREATININE 1.1 mg/dL (0.6-1.3); GLUCOSE 244 mg/dL (74-106); POTASSIUM 5.2 mmol/L (3.5-5.1); SODIUM SERUM 131 mmol/L (136-145); UREA NITROGEN, BLOOD 62 mg/dL (7-18)
[2022-01-03] MEDS ORDERED: IV NS 0.9% 1,000 ML BAG IV ONE (20:00)
[2022-01-03] MEDS ORDERED: CEFEPIME 1 GM in IV D5W 50 ML IV ONE (20:00)
[2022-01-03] MEDS ORDERED: VANCOMYCIN 1 GM in IV D5W 250 ML IV ONE (20:00)
[2022-01-03] MEDS ORDERED: CEFEPIME 1 GM VIAL ONE (20:08)
[2022-01-03] MEDS ORDERED: VANCOMYCIN 1 GM VIAL ONE (20:08)
--- NOTE | 2022-01-03 20:31 | NUR ---
INSERTED 16FR F/C URINE COLLECTED AND SENT TO LAB
--- NOTE | 2022-01-03 20:55 | NUR ---
TITRATED NRB FROM 15LPM TO 10 LPM. TOLERATING AT 97%
[2022-01-03 21:04] LABS: BILIRUBIN,URINE NEGATIVE (NEGATIVE); COLOR,URINE YELLOW (YELLOW); LEUKOCYTE ESTERASE ,URINE NEGATIVE (NEGATIVE); NITRITE, URINE NEGATIVE (NEGATIVE); PH,URINE 5.5 (5.0-8.0); PROTEIN,URINE NEGATIVE (NEGATIVE); UGLUCOSE NEGATIVE (NEGATIVE); UROBILINOGEN,URINE 0.2 EU/dL (0.2)
--- NOTE | 2022-01-03 21:38 | NUR ---
DR Juan Carlos SAENZ.
--- NOTE | 2022-01-03 21:42 | NUR ---
DR ALAMO DO ER ON PHONE CALL WITH DR ONEAL
[2022-01-03] MEDS ORDERED: MULT-447 PO (22:10)
[2022-01-03] MEDS ORDERED: GABA600T12 PO (22:10)
[2022-01-03] MEDS ORDERED: LEVA0.6320 NEB (22:10)
[2022-01-03] MEDS ORDERED: ZINC220T3 PO (22:10)
[2022-01-03] MEDS ORDERED: BETAMETHASONE DIPROPIONATE TOP (22:10)
[2022-01-03] MEDS ORDERED: INSU100V10 SQ (22:10)
[2022-01-03] MEDS ORDERED: ACET325C7 PO ×2 (22:10)
[2022-01-03] MEDS ORDERED: CLOTRIMAZOLE TOP (22:10)
[2022-01-03] MEDS ORDERED: INSU100V42 SQ (22:10)
[2022-01-03] MEDS ORDERED: NICO-676 TP (22:10)
[2022-01-03] MEDS ORDERED: LISI-768 PO (22:10)
[2022-01-03] MEDS ORDERED: FOLI1TAB34 PO (22:10)
[2022-01-03] MEDS ORDERED: QUET100T PO (22:10)
[2022-01-03] MEDS ORDERED: CIPR400P6 IV (22:10)
[2022-01-03] MEDS ORDERED: ATOR20TA PO (22:10)
[2022-01-03] MEDS ORDERED: POVI1MED TP (22:10)
[2022-01-03] MEDS ORDERED: BUSP10TA3 PO (22:10)
[2022-01-03] MEDS ORDERED: ESCI5TAB PO (22:10)
[2022-01-03] MEDS ORDERED: ENOX40DI SQ (22:10)
[2022-01-03] MEDS ORDERED: ASPI-1420 PO (22:10)
[2022-01-03] MEDS ORDERED: LINA5TAB PO (22:10)
[2022-01-03] MEDS ORDERED: ASCO-352 PO (22:10)
--- NOTE | 2022-01-03 23:48 | NUR ---
PER DR. LORD ORDERS: INITIATED NS @ 65ML/HR KATRIN MIDLINE #18 S/L; TOLERATING WELL
[2022-01-04] MEDS ORDERED: IV NS 0.9% 1,000 ML IV PRN (03:30)
--- NOTE | 2022-01-04 04:33 | NUR ---
QUALITY CONTROL SYSTEMS MANAGER AT PT'S BEDSIDE
[2022-01-04 04:44] LABS: BASOPHILS # (AUTO) 0.1 K/uL (0.0-0.2); BASOPHILS % (AUTO) 0.3 % (0.0-2.0); EOSINOPHILS % (AUTO) 0.1 % (0.0-6.0); HEMATOCRIT 27 % (33-45); HEMOGLOBIN 8.7 g/dL (11.5-14.8); LYMPHOCYTES % (AUTO) 4.7 % (20.0-44.0); MEAN CORPUSCULAR HGB CONC 33 g/dl (31.0-36.0); MEAN CORPUSCULAR VOLUME 92 fL (82-100); MONOCYTES % (AUTO) 4.7 % (2.0-12.0); NEUTROPHILS # (AUTO) 19.9 K/uL (1.8-8.9); NEUTROPHILS % (AUTO) 90.2 % (43.0-81.0); PLATELET COUNT (AUTO) 293 K/uL (150-450); RED BLOOD CELL COUNT(AUTO) 2.92 MIL/uL (4.0-5.2)
[2022-01-04 05:00] LABS: CALCIUM, SERUM 7.2 mg/dL (8.5-10.1); CREATININE 1.2 mg/dL (0.6-1.3); POTASSIUM 5.7 mmol/L (3.5-5.1)
[2022-01-04] MEDS ORDERED: PANTOPRAZOLE 40 MG VIAL IV SCH (07:30)
[2022-01-04] MEDS ORDERED: CLOT15CR5 TP (07:43)
[2022-01-04] MEDS ORDERED: DOCU-141 PO (07:43)
[2022-01-04] MEDS ORDERED: ACETAMINOPHEN 325 MG TABLET PO PRN (08:00)
[2022-01-04] MEDS ORDERED: ZOSYN IVPB 3.375 G in IV D5W 50ml IV SCH (08:12)
[2022-01-04] MEDS ORDERED: PIPERACILLIN /TAZOBACTAM 3.375 G VIAL IV ONE (08:22)
[2022-01-04] MEDS ORDERED: PANTOPRAZOLE 40 MG VIAL ONE (08:22)
--- NOTE | 2022-01-04 08:58 | NUR ---
REPORT GIVEN TO DAYNA FOR JEANINE
[2022-01-04] MEDS: LISINOPRIL (5MG) 5 MG TABLET PO SCH (09:00)
[2022-01-04] MEDS ORDERED: ENOXAPARIN SODIUM 40 MG/0.4 ML DISP.SYRIN SQ SCH (09:00)
[2022-01-04] MEDS ORDERED: POVIDONE IODINE TP SCH (09:00)
--- NOTE | 2022-01-04 09:24 | NUR ---
PT TRANFERRED TO 117-1 IN STABLE CONDITION AND RECIVED BY NURSE
--- NOTE | 2022-01-04 09:30 | NUR ---
PRIMER INSERTING MACHINE ADJUSTER OPENING NOTE PATIENT RECEIVED FROM ER VIA GURNEY ACCOMPANIED BY 3 ER STAFF. PATIENT IS AWAKE, ALERT, ORIENTED X 4. PATIENT STATES SHE'S SHORT OF BREATH, O2 SATURATION AT 100%, TOLERATES SIMPLE FACE MASK AT 8L/MIN. PICC LINE INTACT AND PATENT. ZHU CATHETER INTACT AND ATTACHED TO URINE BAG DRAINING TO BRENDA COLORED URINE. INITIAL ASSESSMENT DONE. PATIENT ORIENTED TO ROOM, EDUCATED ABOUT DIET AND TREATMENT PLAN. BED IS LOCKED IN LOWEST POSITION, 3 SIDE RAILS UP, CALL LIGHT WITHIN REACH. WILL CONTINUE TO MONITOR.
[2022-01-04] MEDS: ESCITALOPRAM OXALATE (10 MG) 10 MG TABLET PO SCH (10:29)
[2022-01-04] MEDS: GABAPENTIN 300 MG CAPSULE PO SCH ×3 (10:29→21:35)
[2022-01-04] MEDS: LINAGLIPTIN 5 MG TABLET PO SCH (10:30)
[2022-01-04] MEDS: ASCORBIC ACID 500 MG TABLET PO SCH (10:31)
[2022-01-04] MEDS: MULTIVIT W/MINERALS 1 TAB TABLET PO SCH (10:31)
[2022-01-04] MEDS: ZINC SULFATE 220 MG CAPSULE PO SCH (10:31)
[2022-01-04] MEDS: ACETAMINOPHEN 325 MG TABLET PO SCH (10:31)
[2022-01-04] MEDS: busPIRone 5 MG TABLET PO SCH ×2 (10:32→18:12)
[2022-01-04] MEDS: QUETIAPINE FUMARATE 100 MG TABLET PO SCH ×2 (10:32→18:11)
[2022-01-04] MEDS: NICOTINE PATCH (14MG) 14 MG PATCH.TD24 TD SCH (10:32)
[2022-01-04] MEDS: CLOTRIMAZOLE/BETAMETASONE DIPROPIONATE 15 GM TUBE TP SCH ×2 (10:54→18:24)
[2022-01-04] MEDS: VANCOMYCIN 1 GM in IV D5W 250 ML IV SCH ×2 (10:56→20:59)
[2022-01-04] MEDS: INSULIN GLARGINE, 100 UNIT/ML CARTRIDGE SQ SCH ×2 (11:18→18:27)
--- NOTE | 2022-01-04 11:45 | NUR ---
OXYGEN FLOW INCREASED FROM 3 LPM TO 4 LPM NASAL CANNULA DUE TO 93% SPO2 AND 66 PAO2 Addendum: 01/04/22 at 1146 by VICK APARICIO RT Amended: Links added.
[2022-01-04 12:00] VITALS: BP 118/48
[2022-01-04] MEDS ORDERED: DEXTROSE 50%-WATER 50 ML DISP.SYRIN IV PRN (12:00)
[2022-01-04] MEDS: BLOOD SUGAR DIAGNOSTIC 1 EACH STRIP IN SCH ×3 (12:13→22:00)
[2022-01-04] MEDS: INSULIN REGULAR, HUMAN 100 UNIT/ML 3 ML VIAL SQ PRN ×3 (12:18→22:02)
[2022-01-04] MEDS: PIPERACILLIN /TAZOBACTAM 3.375 G in IV D5W 100 ML IV SCH ×2 (13:27→21:40)
[2022-01-04] MEDS: ALBUTEROL FS 2.5 MG/3 ML VIAL.NEB NEB SCH ×2 (13:37→20:15)
[2022-01-04 15:39] LABS: OCCULT BLOOD STOOL POSITIVE (NEGATIVE)
[2022-01-04 16:00] VITALS: BP 90/47
[2022-01-04] MEDS: VIT B CMPLX 3/FA/VIT C/BIOTIN 1 TAB TABLET PO SCH (18:11)
--- NOTE | 2022-01-04 18:55 | NUR ---
RN CLOSING NOTE PATIENT IS ASLEEP BUT EASILTY AROUSABLE. BREATHING UNLABORED AND NOT IN ANY FORM OF DISTRESS AT THIS TIME. TOLERATES NASAL CANNULA AT 5L/MIN. IV REMAINS INTACT AND INFUSING WITH NS AT 65 ML/HR. ZHU CATHETER REMAINS INTACT. ALL HOSPITAL SAFETY PRECAUTIONS IN PLACE. WILL ENDORSE TO SIENE MAKER NURSE.
[2022-01-04 20:00] VITALS: BP 101/53
[2022-01-04] MEDS: ATORVASTATIN 10 MG TABLET PO SCH (21:34)
--- NOTE | 2022-01-04 22:04 | NUR ---
RN NOTES: PT'S BLOOD SUGAR 381. 10 UNITS OF REGULAR INSULIN GIVEN. NO S/S OF HYPER/HYPOGLYCEMIA. WILL CONTINUE TO MONITOR
[2022-01-05] VITALS (8 sets, daily range): BP systolic 80–110; BP diastolic 43–61
[2022-01-05] MEDS: ALBUTEROL FS 2.5 MG/3 ML VIAL.NEB NEB SCH ×4 (01:11→20:19)
[2022-01-05] MEDS: PIPERACILLIN /TAZOBACTAM 3.375 G in IV D5W 100 ML IV SCH ×3 (05:23→21:42)
--- NOTE | 2022-01-05 06:28 | NUR ---
RN CLOSING NOTES: PATIENT IN BED SLEEPING BUT EASILY AROUSABLE, ALERT, ORIENTED X 3 AND VERBALLY RESPONSIVE. ON O2 AT 5L/MIN VIA N/C AND PT TOLERATED WELL. O2 SAT 100%. IV ACCESS ON KATRIN PICC INTACT AND PATENT. RUNNING NS AT 65CC/HR. NO C/O PAIN OR DISCOMFORT. NO ACUTE DISTRESS. ZHU CATHETER IN PLACE, DRAINING BY GRAVITY. NOTED BRENDA COLOR URINE. ALL DUE MEDS GIVEN ORDERED. ALL SAFETY MEASURES IN PLACE. BED IN LOWEST POSITION AND LOCKED. SIDE RAILS UP X3, PLACE CALL LIGHT WITHIN REACH. WILL ENDORSE TO MORNING SHIFT NURSE.
[2022-01-05 07:04] LABS: CALCIUM, SERUM 6.8 mg/dL (8.5-10.1); CREATININE 1.3 mg/dL (0.6-1.3)
--- NOTE | 2022-01-05 07:20 | NUR ---
LEAD PROGRAMMER OPENING NOTES: PATIENT IN BED SLEEPING BUT EASILY AROUSABLE, ALERT, ORIENTED X 3 AND VERBALLY RESPONSIVE. ON O2 AT 5L/MIN VIA N/C AND PT TOLERATED WELL. O2 SAT 97%. IV ACCESS ON KATRIN MID LINE INTACT AND PATENT.. NO C/O PAIN OR DISCOMFORT. NO ACUTE DISTRESS. ZHU CATHETER IN PLACE, DRAINING BY GRAVITY. NOTED BRENDA COLOR URINE. ALL DUE MEDS GIVEN ORDERED. ALL SAFETY MEASURES IN PLACE. BED IN LOWEST POSITION AND LOCKED. SIDE RAILS UP X3, PLACE CALL LIGHT WITHIN REACH.
--- NOTE | 2022-01-05 07:41 | NUR ---
WOUND CARE CONSULT: PT SEEN FOR RT FOOT DISCOLORATION/BLISTER WHICH WAS PRESENT ON ADMISSION. RECOMMEND DPM CONSULT. DR WARE CALLED. DISCUSSED SKIN PROTECTION WITH NURSING STAFF. MD IN AGREEMENT WITH PLAN OF CARE.
[2022-01-05] MEDS: BLOOD SUGAR DIAGNOSTIC 1 EACH STRIP IN SCH ×4 (08:43→22:14)
[2022-01-05] MEDS: INSULIN REGULAR, HUMAN 100 UNIT/ML 3 ML VIAL SQ PRN ×4 (08:44→22:10)
[2022-01-05 08:52] LABS: BASOPHILS # (AUTO) 0.1 K/uL (0.0-0.2); BASOPHILS % (AUTO) 0.5 % (0.0-2.0); EOSINOPHILS % (AUTO) 0.6 % (0.0-6.0); LYMPHOCYTES # (AUTO) 0.9 K/uL (0.8-4.8); LYMPHOCYTES % (AUTO) 5.1 % (20.0-44.0); MEAN CORPUSCULAR HGB CONC 34 g/dl (31.0-36.0); MEAN CORPUSCULAR VOLUME 91 fL (82-100); MONOCYTES # (AUTO) 0.7 K/uL (0.1-1.30); MONOCYTES % (AUTO) 3.8 % (2.0-12.0); NEUTROPHILS # (AUTO) 15.6 K/uL (1.8-8.9); PLATELET COUNT (AUTO) 313 K/uL (150-450); WHITE BLOOD COUNT (AUTO) 17.3 K/uL (4.3-11.0)
[2022-01-05] MEDS: CLOTRIMAZOLE/BETAMETASONE DIPROPIONATE 15 GM TUBE TP SCH ×2 (09:00→18:00)
[2022-01-05] MEDS: Z GUARD REMEDY 4 OZ OINT TP SCH (09:00)
[2022-01-05 09:08] LABS: HEMATOCRIT 20 % (33-45); HEMOGLOBIN 6.7 g/dL (11.5-14.8)
--- NOTE | 2022-01-05 09:29 | NUR ---
RN NOTES: SPOKE TO DR KIMMY PALMER 6.7 HCT 20 WITH ORDER OF BLOOD TRANSFUSION 1 UNIT RBC AND DDAVP 20MCG X 1 ,ORDER NOTED AND CARRIED OUT
[2022-01-05] MEDS: INSULIN GLARGINE, 100 UNIT/ML CARTRIDGE SQ SCH ×2 (09:46→17:57)
[2022-01-05] MEDS ORDERED: DESMOPRESSIN ACETATE 0.1 MG/ML NS SCH (10:00)
[2022-01-05] MEDS ORDERED: DDAVP 20 MCG in IV NS 50 ML IV ONE (10:00)
--- NOTE | 2022-01-05 10:00 | NUR ---
RN NOTES: ULTRASOUND GUIDED THORACENTESIS DONE, 500 ML PLEURAL FLUID TAKEN OUT AND WENT TO THE LAB FOR CYTOLOGY EXAM, PATIENT TOLERATED PROCEDURE WELL, ORDERED STAT CHEST X RAY POST PROCEDURE
[2022-01-05] MEDS: NICOTINE PATCH (14MG) 14 MG PATCH.TD24 TD SCH (10:19)
[2022-01-05] MEDS: VANCOMYCIN 1 GM in IV D5W 250 ML IV SCH (10:19)
[2022-01-05] MEDS: MULTIVIT W/MINERALS 1 TAB TABLET PO SCH (10:20)
[2022-01-05] MEDS: ESCITALOPRAM OXALATE (10 MG) 10 MG TABLET PO SCH (10:20)
[2022-01-05] MEDS: PANTOPRAZOLE 40 MG TABLET.DR PO SCH (10:21)
[2022-01-05] MEDS: TRAMADOL HCL 50 MG TABLET PO PRN (10:21)
[2022-01-05] MEDS: ASCORBIC ACID 500 MG TABLET PO SCH (10:22)
[2022-01-05] MEDS: GABAPENTIN 300 MG CAPSULE PO SCH ×3 (10:22→22:14)
[2022-01-05] MEDS: ACETAMINOPHEN 325 MG TABLET PO SCH (10:22)
[2022-01-05] MEDS: QUETIAPINE FUMARATE 100 MG TABLET PO SCH ×2 (10:22→17:35)
[2022-01-05] MEDS: busPIRone 5 MG TABLET PO SCH ×2 (10:23→17:35)
[2022-01-05] MEDS: LISINOPRIL (5MG) 5 MG TABLET PO SCH (10:23)
[2022-01-05] MEDS: LINAGLIPTIN 5 MG TABLET PO SCH (10:23)
[2022-01-05] MEDS: ZINC SULFATE 220 MG CAPSULE PO SCH (10:23)
[2022-01-05 12:31] LABS: BAND % (MANUAL) 5 % (0.0-5.0); BASOPHILS % (MANUAL) 0 % (0.0-2.0); EOSINOPHILS % (MANUAL) 1 % (0-4); LYMPHOCYTES % (MANUAL) 2 % (16-48); MONOCYTES % (MANUAL) 1 % (0-11.0); NEUTROPHILS % (MANUAL) 91 (42-76)
[2022-01-05] MEDS ORDERED: ALPRAZOLAM 0.25 MG TABLET PO PRN (14:00)
[2022-01-05] MEDS: VIT B CMPLX 3/FA/VIT C/BIOTIN 1 TAB TABLET PO SCH (18:19)
--- NOTE | 2022-01-05 19:28 | NUR ---
SENIOR MARKETING ENGINEER CLOSING NOTES: PATIENT IN BED SLEEPING BUT EASILY AROUSABLE, ALERT, ORIENTED X 3 AND VERBALLY RESPONSIVE. ON O2 AT 5L/MIN VIA N/C AND PT TOLERATED WELL. O2 SAT 97%. IV ACCESS ON KATRIN MID LINE INTACT AND PATENT.. NO C/O PAIN OR DISCOMFORT. NO ACUTE DISTRESS. ZHU CATHETER IN PLACE, DRAINING BY GRAVITY. NOTED BRENDA COLOR URINE. ALL DUE MEDS GIVEN ORDERED. ALL SAFETY MEASURES IN PLACE.BLOOD TRANSFUSION COMPLETED WITHOUT ANY ADVERSE REACTION NOTED. BED IN LOWEST POSITION AND LOCKED. SIDE RAILS UP X3, PLACE CALL LIGHT WITHIN REACH. WILL ENDORSE TO MORNING SHIFT NURSE.
--- NOTE | 2022-01-05 20:00 | NUR ---
RN OPENING NOTE RECEIVED PT IN BED AWAKE, ALERT/ORIENTED X3 AND VERBALLY RESPONSIVE. BREATHING EVEN AND UNLABORED. S/P BLOOD TRANSFUSION NO ASE NOTED . O2 AT 4 LITERS VIA NC SAT 97%.SR ON THE MONITOR . IV ACCESS ON RIGHT UA PICC LINE INTACT AND PATENT. NO S/S OF INFILTRATIONS. NO C/O PAIN OR DISCOMFORT. WITH ZHU CATH INTACT DRAINING WITH YELLOWISH URINE OUTPUT ALL DUE MEDS GIVEN ORDERED NO ASE NOTED .. ALL SAFETY MEASURES IN PLACE. SIDE RAILS UP X2, BED IN LOWEST POSITION AND LOCKED. PLACE CALL LIGHT WITH IN REACH. WILL CONTINUE TO MONITOR PTS.
[2022-01-05] MEDS: VANCOMYCIN 0.75 GM in IV D5W 250 ML IV SCH (20:15)
[2022-01-05] MEDS: ATORVASTATIN 10 MG TABLET PO SCH (22:14)
--- NOTE | 2022-01-05 22:16 | NUR ---
teletype installer notes Blood sugar at 10pm is 309 8 units of regular insulin given per sliding scale
[2022-01-06] VITALS (11 sets, daily range): BP systolic 98–148; BP diastolic 58–89
[2022-01-06] MEDS: ALBUTEROL FS 2.5 MG/3 ML VIAL.NEB NEB SCH ×4 (01:40→21:02)
[2022-01-06] MEDS: PIPERACILLIN /TAZOBACTAM 3.375 G in IV D5W 100 ML IV SCH ×3 (04:01→21:03)
--- NOTE | 2022-01-06 05:42 | NUR ---
telecom manager closing note Pts remain in bed awake oriented remains on 4 liters of oxyen va nc sating 96% no sob no distress noted. due meds zosyn given with no adverse side effect noted , will endorse pts to day shift rn for continuity of care.
[2022-01-06 07:04] LABS: BASOPHILS # (AUTO) 0.1 K/uL (0.0-0.2); BASOPHILS % (AUTO) 0.5 % (0.0-2.0); EOSINOPHILS % (AUTO) 0.6 % (0.0-6.0); HEMATOCRIT 22 % (33-45); LYMPHOCYTES # (AUTO) 1.6 K/uL (0.8-4.8); LYMPHOCYTES % (AUTO) 11.6 % (20.0-44.0); MEAN CORPUSCULAR HGB CONC 33 g/dl (31.0-36.0); MEAN CORPUSCULAR VOLUME 94 fL (82-100); MONOCYTES % (AUTO) 6.8 % (2.0-12.0); NEUTROPHILS # (AUTO) 11.3 K/uL (1.8-8.9); NEUTROPHILS % (AUTO) 80.5 % (43.0-81.0); PLATELET COUNT (AUTO) 286 K/uL (150-450); RED BLOOD CELL COUNT(AUTO) 2.29 MIL/uL (4.0-5.2)
--- NOTE | 2022-01-06 07:11 | NUR ---
RN OPENING NOTE RECEIVED PT IN BED AWAKE, ALERT/ORIENTED X3 AND VERBALLY RESPONSIVE. BREATHING EVEN AND UNLABORED. O2 AT 4 LITERS VIA NC SAT 97%.SR ON THE MONITOR . IV ACCESS ON RIGHT UA PICC LINE INTACT AND PATENT. NO S/S OF INFILTRATIONS. NO C/O PAIN OR DISCOMFORT. WITH ZHU CATH INTACT DRAINING WITH YELLOWISH URINE OUTPUT ALL SAFETY MEASURES IN PLACE. SIDE RAILS UP X2, BED IN LOWEST POSITION AND LOCKED. PLACE CALL LIGHT WITH IN REACH. WILL CONTINUE TO MONITOR AND FALLOW POC
[2022-01-06] MEDS: BLOOD SUGAR DIAGNOSTIC 1 EACH STRIP IN SCH ×4 (07:32→22:15)
[2022-01-06] MEDS: INSULIN REGULAR, HUMAN 100 UNIT/ML 3 ML VIAL SQ PRN ×4 (07:46→22:14)
[2022-01-06] MEDS: PANTOPRAZOLE 40 MG TABLET.DR PO SCH (07:49)
[2022-01-06 08:02] LABS: CREATININE 1.1 mg/dL (0.6-1.3)
[2022-01-06] MEDS: VANCOMYCIN 0.75 GM in IV D5W 250 ML IV SCH ×2 (08:42→20:10)
[2022-01-06] MEDS: ASCORBIC ACID 500 MG TABLET PO SCH (08:42)
[2022-01-06] MEDS: ZINC SULFATE 220 MG CAPSULE PO SCH (08:43)
[2022-01-06] MEDS: busPIRone 5 MG TABLET PO SCH ×2 (08:43→16:20)
[2022-01-06] MEDS: LINAGLIPTIN 5 MG TABLET PO SCH (08:44)
[2022-01-06] MEDS: ESCITALOPRAM OXALATE (10 MG) 10 MG TABLET PO SCH (08:44)
[2022-01-06] MEDS: LISINOPRIL (5MG) 5 MG TABLET PO SCH (08:45)
[2022-01-06] MEDS: QUETIAPINE FUMARATE 100 MG TABLET PO SCH ×2 (08:46→16:20)
[2022-01-06] MEDS: MULTIVIT W/MINERALS 1 TAB TABLET PO SCH (08:46)
[2022-01-06] MEDS: NICOTINE PATCH (14MG) 14 MG PATCH.TD24 TD SCH (08:47)
[2022-01-06] MEDS: GABAPENTIN 300 MG CAPSULE PO SCH ×3 (08:48→21:06)
[2022-01-06] MEDS: ACETAMINOPHEN 325 MG TABLET PO SCH (08:50)
[2022-01-06] MEDS: INSULIN GLARGINE, 100 UNIT/ML CARTRIDGE SQ SCH ×2 (08:52→16:27)
[2022-01-06] MEDS: Z GUARD REMEDY 4 OZ OINT TP SCH (09:07)
[2022-01-06] MEDS: CLOTRIMAZOLE/BETAMETASONE DIPROPIONATE 15 GM TUBE TP SCH ×2 (09:08→16:20)
[2022-01-06 09:42] LABS: PHOSPHORUS 3.5 mg/dL (2.5-4.9)
--- NOTE | 2022-01-06 15:32 | NUR ---
RN NOTE CALLED TO THE LAB TO FALLOW UP IF BLOOD IS READY FOR TRANSFUSION. WAS TOLD THAT BLOOD IS NOT READY, WILL FALLOW UP LATER
[2022-01-06] MEDS: VIT B CMPLX 3/FA/VIT C/BIOTIN 1 TAB TABLET PO SCH (18:00)
--- NOTE | 2022-01-06 18:45 | NUR ---
RN CLOSING NOTE PATIENT IS AWAKE, ALERT/ORIENTED X3 AND VERBALLY RESPONSIVE. BREATHING EVEN AND UNLABORED. O2 AT 4 LITERS VIA NC SAT 97%.SR ON THE MONITOR . IV ACCESS ON RIGHT UA PICC LINE INTACT AND PATENT.RBS TRASFUSION STARTED AT 1720 AT 50ML/HR PATIENT TOLERATING WELL, GRADUALLY INCREASED TO 180 ML/HR NO S/S OF ADVERSE REAVTION NO C/O PAIN OR DISCOMFORT. WITH ZHU CATH INTACT DRAINING WITH YELLOWISH URINE OUTPUT ALL SAFETY MEASURES IN PLACE. SIDE RAILS UP X2, BED IN LOWEST POSITION AND LOCKED. PLACE CALL LIGHT WITH IN REACH. WILL ENDORSE NIGHR SHIFT NURSE TO MONITOR AND FALLOW POC
[2022-01-06] MEDS: TRAMADOL HCL 50 MG TABLET PO PRN (20:14)
[2022-01-06] MEDS: ATORVASTATIN 10 MG TABLET PO SCH (21:07)
--- NOTE | 2022-01-06 21:46 | NUR ---
senior telecommunications technician notes 2nd unit of prbc completed with noadverse side effect noted.
--- NOTE | 2022-01-06 21:57 | NUR ---
RN OPENING NOTE RECEIVED PT IN BED AWAKE, ALERT/ORIENTED X3 AND VERBALLY RESPONSIVE. BREATHING EVEN AND UNLABORED. BLOOD TRANSFUSION still on progress NO ASE NOTED . O2 AT 4 LITERS VIA NC SAT 97%.SR ON THE MONITOR . IV ACCESS ON RIGHT UA PICC LINE INTACT AND PATENT. NO S/S OF INFILTRATIONS. NO C/O PAIN OR DISCOMFORT. WITH ZHU CATH INTACT DRAINING WITH YELLOWISH URINE OUTPUT ALL DUE MEDS GIVEN ORDERED NO ASE NOTED .. ALL SAFETY MEASURES IN PLACE. SIDE RAILS UP X2, BED IN LOWEST POSITION AND LOCKED. PLACE CALL LIGHT WITH IN REACH. WILL CONTINUE TO MONITOR PTS.PTS WILL BE NPO POST [place] ,INSTRUCTED TO PTS VERVALIZED UNDERSTANDING , PTS WILL BE HAVING EGD IN AM CONSENTED FOR PROCEDURE.
--- NOTE | 2022-01-06 22:16 | NUR ---
television engineering teacher notes blood sugar at 10pm is 283 mg/dl 6 units of regular insulin per sliding scale given
[2022-01-07] VITALS (7 sets, daily range): BP systolic 114–149; BP diastolic 52–85
[2022-01-07] MEDS: ALBUTEROL FS 2.5 MG/3 ML VIAL.NEB NEB SCH ×4 (01:42→19:23)
[2022-01-07] MEDS: PIPERACILLIN /TAZOBACTAM 3.375 G in IV D5W 100 ML IV SCH ×3 (04:05→22:34)
--- NOTE | 2022-01-07 06:33 | NUR ---
television anchor closing note Pts remain in bed awake oriented remains on 4 liters of oxyen va nc sating 96% no sob no distress noted. due meds zosyn given with no adverse side effect noted , will endorse pts to day shift rn for continuity of care.maintained npo status for egd today.
[2022-01-07 06:38] LABS: CALCIUM, SERUM 7.3 mg/dL (8.5-10.1); CREATININE 0.9 mg/dL (0.6-1.3); POTASSIUM 5.2 mmol/L (3.5-5.1)
[2022-01-07] MEDS: BLOOD SUGAR DIAGNOSTIC 1 EACH STRIP IN SCH ×4 (07:42→22:33)
--- NOTE | 2022-01-07 07:42 | NUR ---
RN OPEN NOTE RECEIVED PT IN BED AWAKE, ALERT/ORIENTED X3 AND VERBALLY RESPONSIVE. BREATHING EVEN AND UNLABORED. O2 AT 4 LITERS VIA NC SAT 97%.SR ON THE MONITOR . IV ACCESS ON RIGHT UA PICC LINE INTACT AND PATENT. NO S/S OF INFILTRATIONS. NO C/O PAIN OR DISCOMFORT. WITH ZHU CATH INTACT DRAINING WITH YELLOWISH URINE OUTPUT. ALL SAFETY MEASURES IN PLACE. SIDE RAILS UP X2, BED IN LOWEST POSITION AND LOCKED. PLACE CALL LIGHT WITH IN REACH. .PT IS NPO SINCE THE MIDNIGHT DUE TO SCHEDULED FOR EGD PROCEDURE .WILL CONTINUE TO FALLOW POC
[2022-01-07] MEDS ORDERED: ACETAMINOPHEN 650 MG/SUPP.RECT RC PRN (08:00)
[2022-01-07] MEDS: busPIRone 5 MG TABLET PO SCH ×2 (08:06→16:45)
[2022-01-07] MEDS: NICOTINE PATCH (14MG) 14 MG PATCH.TD24 TD SCH (08:06)
[2022-01-07] MEDS: MULTIVIT W/MINERALS 1 TAB TABLET PO SCH (08:06)
[2022-01-07] MEDS: PANTOPRAZOLE 40 MG TABLET.DR PO SCH (08:06)
[2022-01-07] MEDS: CLOTRIMAZOLE/BETAMETASONE DIPROPIONATE 15 GM TUBE TP SCH ×2 (08:06→16:58)
[2022-01-07] MEDS: Z GUARD REMEDY 4 OZ OINT TP SCH (08:06)
[2022-01-07] MEDS: ZINC SULFATE 220 MG CAPSULE PO SCH (08:07)
[2022-01-07] MEDS: ESCITALOPRAM OXALATE (10 MG) 10 MG TABLET PO SCH (08:07)
[2022-01-07] MEDS: LINAGLIPTIN 5 MG TABLET PO SCH (08:07)
[2022-01-07] MEDS: GABAPENTIN 300 MG CAPSULE PO SCH ×3 (08:07→22:19)
[2022-01-07] MEDS: LISINOPRIL (5MG) 5 MG TABLET PO SCH (08:08)
[2022-01-07] MEDS: QUETIAPINE FUMARATE 100 MG TABLET PO SCH ×2 (08:10→16:45)
[2022-01-07] MEDS: ASCORBIC ACID 500 MG TABLET PO SCH (08:10)
[2022-01-07] MEDS: INSULIN GLARGINE, 100 UNIT/ML CARTRIDGE SQ SCH ×2 (08:11→16:54)
[2022-01-07] MEDS: ACETAMINOPHEN 325 MG TABLET PO SCH (08:14)
[2022-01-07] MEDS: VANCOMYCIN 0.75 GM in IV D5W 250 ML IV SCH (09:00)
--- NOTE | 2022-01-07 09:45 | NUR ---
RN NOTE VANCO THROUGH LEVEL IS 23 THIS MORNING , CALLED PHARMACY , ORDER TO HOLD 9 AM DOSE AND WILL ADJUST DOSE RESPOND .
[2022-01-07] MEDS ORDERED: ANESTHESIA TRAY IN PYXIS 1 EA TRAY MC ONE (15:03)
--- NOTE | 2022-01-07 15:15 | NUR ---
RN NOTE] PATIENT WAS TAKEN TO THE OR FOR EGD PROCEDURE
--- NOTE | 2022-01-07 16:20 | NUR ---
RN NOTE PATIENT IS BACK DROM THE OR , EGD PROCEDURE WAS DONE , PATIENT IS FEELING WELL , VS BP 137/76, RESP 20 , TEMP 98.7, O2 SAT 97 % ON 4 L OF O2 AN/C HE 102
[2022-01-07] MEDS: SUCRALFATE 1 G/10 ML UDC GT SCH ×2 (16:45→22:19)
[2022-01-07] MEDS: TRAMADOL HCL 50 MG TABLET PO PRN (17:11)
[2022-01-07] MEDS: VIT B CMPLX 3/FA/VIT C/BIOTIN 1 TAB TABLET PO SCH (17:13)
--- NOTE | 2022-01-07 17:59 | NUR ---
RECEIVED PATIENT ON 4LNC SATURATIONS AT 98%. Q6 HHN TXS HUMBLE WELL WITH NO ADVERSE REACTION NOTED. NO SOB NOTED.
--- NOTE | 2022-01-07 18:44 | NUR ---
RN CLOSE NOTE PT IN BED AWAKE, ALERT/ORIENTED X3 AND VERBALLY RESPONSIVE. BREATHING EVEN AND UNLABORED. O2 AT 4 LITERS VIA NC SAT 97%.SR ON THE MONITOR . IV ACCESS ON RIGHT UA PICC LINE INTACT AND PATENT. NO S/S OF INFILTRATIONS. NO C/O PAIN OR DISCOMFORT. ZHU CATH WAS REMOVED BECAUSE PATIENT C/O OF THE DISCOMFORT , BY DR CHERIE ZHU WAS D/C ALL MEDICATIONS WERE ADMINISTERED , ALL NEEDS WERE MET .ALL SAFETY MEASURES IN PLACE. SIDE RAILS UP X2, BED IN LOWEST POSITION AND LOCKED. PLACE CALL LIGHT WITH IN REACH. .WILL ENDORSE [employer]ER NURSE TO FALLOW POC
--- NOTE | 2022-01-07 19:20 | NUR ---
RN NOTE RECEIVED PATIENT IN BED, AO X 4, IN NO S/SX OF ACUTE DISTRESS AT THIS TIME. SATURATION AT 96% ON 4L VIA NC, SR ON THE MONITOR, HR IS 89. KATRIN PICC LINE PATENT AND FLUSHING WELL, NO S/S OF INFECTION OR BLEEDING. EXTERNAL URINE CATHETER IN PLACE, NOTED A MODERATE AMOUNT OF CLEAR, YELLOW OUTPUT. SAFETY MEASURES IMPLEMENTED. PATIENT BED ALARM IS ON. HEAD OF BED ELEVATED. BED IS LOCKED, IN LOWEST POSITION AND SIDE RAILS UP. CALL LIGHT WITHIN REACH OF THE PATIENT. WILL CONTINUE TO MONITOR AND REASSESS FOR ANY CHANGES.
[2022-01-07 19:49] LABS: BILIRUBIN,URINE NEGATIVE (NEGATIVE); COLOR,URINE YELLOW (YELLOW); LEUKOCYTE ESTERASE ,URINE TRACE (NEGATIVE); NITRITE, URINE NEGATIVE (NEGATIVE); PROTEIN,URINE NEGATIVE (NEGATIVE); UGLUCOSE NEGATIVE (NEGATIVE)
[2022-01-07 20:01] LABS: BACTERIA,URINE None seen /HPF (None Seen); SQUAMOUS EPITHELIAL CELL,UR 0-2 /HPF (None Seen); YEAST,URINE Moderate /HPF (None Seen)
[2022-01-07 20:02] LABS: URIC ACID CRYSTALS,URINE Moderate /HPF (None Seen)
[2022-01-07] MEDS: VANCOMYCIN 500 MG in IV D5W 100ml IV SCH (22:19)
[2022-01-07] MEDS: ATORVASTATIN 10 MG TABLET PO SCH (22:19)
[2022-01-07] MEDS: INSULIN REGULAR, HUMAN 100 UNIT/ML 3 ML VIAL SQ PRN (22:32)
[2022-01-08] VITALS: BP 136/78
[2022-01-08] MEDS: TEMAZEPAM 15 MG CAPSULE PO PRN ×2 (00:45→21:13)
[2022-01-08] MEDS: ALBUTEROL FS 2.5 MG/3 ML VIAL.NEB NEB SCH ×4 (01:10→21:02)
[2022-01-08 04:00] VITALS: BP 130/84
[2022-01-08] MEDS: PIPERACILLIN /TAZOBACTAM 3.375 G in IV D5W 100 ML IV SCH ×3 (05:54→21:02)
[2022-01-08] MEDS: TRAMADOL HCL 50 MG TABLET PO PRN (06:13)
[2022-01-08 07:18] LABS: CALCIUM, SERUM 7.6 mg/dL (8.5-10.1); CREATININE 0.8 mg/dL (0.6-1.3); POTASSIUM 5.2 mmol/L (3.5-5.1)
--- NOTE | 2022-01-08 07:30 | NUR ---
RN OPENING NOTE PT OBSERVED IN BED SITTING UP. PT IS ON 4L NC TOLERATING WELL WITH NO SIGNS OF DISTRESS OR LABORED BREATHING. PT IS A/OX4 TELE MONITORED SR- ST AT THIS TIME. PT HAS DIAPER AND USES PUREWICK. PT IS ON REGULAR DIET IV ACCESS R UA PICC LINE. BED IS LOCKED IN LOWEST POSITION X2 BED RAILS UP AND ALL HOSPITAL SAFETY MEASURES ARE IN PLACE. WILL CONTINUE TO MONITOR THIS SHIFT.
[2022-01-08] MEDS: BLOOD SUGAR DIAGNOSTIC 1 EACH STRIP IN SCH ×4 (07:53→21:20)
[2022-01-08 08:00] VITALS: BP 110/68
[2022-01-08] MEDS: MULTIVIT W/MINERALS 1 TAB TABLET PO SCH (08:16)
[2022-01-08] MEDS: NICOTINE PATCH (14MG) 14 MG PATCH.TD24 TD SCH (08:16)
[2022-01-08] MEDS: busPIRone 5 MG TABLET PO SCH ×2 (08:16→16:23)
[2022-01-08] MEDS: PANTOPRAZOLE 40 MG TABLET.DR PO SCH (08:16)
[2022-01-08] MEDS: ASCORBIC ACID 500 MG TABLET PO SCH (08:16)
[2022-01-08] MEDS: ACETAMINOPHEN 325 MG TABLET PO SCH (08:17)
[2022-01-08] MEDS: QUETIAPINE FUMARATE 100 MG TABLET PO SCH ×2 (08:17→16:23)
[2022-01-08] MEDS: GABAPENTIN 300 MG CAPSULE PO SCH ×3 (08:17→21:00)
[2022-01-08] MEDS: ESCITALOPRAM OXALATE (10 MG) 10 MG TABLET PO SCH (08:17)
[2022-01-08] MEDS: ZINC SULFATE 220 MG CAPSULE PO SCH (08:17)
[2022-01-08] MEDS: SUCRALFATE 1 G/10 ML UDC GT SCH (08:17)
[2022-01-08] MEDS: LISINOPRIL (5MG) 5 MG TABLET PO SCH (08:18)
[2022-01-08] MEDS: LINAGLIPTIN 5 MG TABLET PO SCH (08:18)
[2022-01-08] MEDS: Z GUARD REMEDY 4 OZ OINT TP SCH (08:19)
[2022-01-08] MEDS: CLOTRIMAZOLE/BETAMETASONE DIPROPIONATE 15 GM TUBE TP SCH ×2 (08:19→16:25)
[2022-01-08] MEDS: INSULIN REGULAR, HUMAN 100 UNIT/ML 3 ML VIAL SQ PRN ×4 (08:22→21:22)
[2022-01-08] MEDS: INSULIN GLARGINE, 100 UNIT/ML CARTRIDGE SQ SCH ×2 (08:23→16:59)
[2022-01-08] MEDS: VANCOMYCIN 500 MG in IV D5W 100ml IV SCH (08:29)
[2022-01-08 09:04] LABS: BASOPHILS # (AUTO) 0.1 K/uL (0.0-0.2); BASOPHILS % (AUTO) 0.7 % (0.0-2.0); EOSINOPHILS % (AUTO) 1.1 % (0.0-6.0); HEMATOCRIT 26 % (33-45); HEMOGLOBIN 8.8 g/dL (11.5-14.8); LYMPHOCYTES # (AUTO) 1.8 K/uL (0.8-4.8); LYMPHOCYTES % (AUTO) 13.5 % (20.0-44.0); MEAN CORPUSCULAR HGB CONC 33 g/dl (31.0-36.0); MEAN CORPUSCULAR VOLUME 92 fL (82-100); MONOCYTES # (AUTO) 1.1 K/uL (0.1-1.30); MONOCYTES % (AUTO) 7.9 % (2.0-12.0); NEUTROPHILS # (AUTO) 10.3 K/uL (1.8-8.9); NEUTROPHILS % (AUTO) 76.8 % (43.0-81.0); PLATELET COUNT (AUTO) 467 K/uL (150-450); RED BLOOD CELL COUNT(AUTO) 2.87 MIL/uL (4.0-5.2); WHITE BLOOD COUNT (AUTO) 13.4 K/uL (4.3-11.0)
[2022-01-08 10:16] LABS: ABG BASE EXCESS 1.6 mmol/L; ABG PCO2 37.5 mmHg (35.0-45.0); ABG PH 7.451 (7.350-7.450); ABG PO2 48.3 mmHg (75.0-100.0); AaDO2 56.5 mmHg; COHb 0.1 % (0.5-1.5); MetHb 0.4 % (0.0-1.5); O2Hb 86.6 % (94.0-97.0); SITE, ABG Right Radial; VENT MODE, BG RA 21%
--- NOTE | 2022-01-08 10:22 | NUR ---
Speak to Dr. Lambert request 2 L NC after post ABG
[2022-01-08 12:00] VITALS: BP 107/68
[2022-01-08] MEDS: SUCRALFATE 1 G TABLET PO SCH ×3 (12:44→21:00)
[2022-01-08] MEDS: FLUCONAZOLE (100 MG) 100 MG TABLET PO SCH (13:25)
[2022-01-08 16:00] VITALS: BP 109/54
[2022-01-08] MEDS: VIT B CMPLX 3/FA/VIT C/BIOTIN 1 TAB TABLET PO SCH (17:03)
--- NOTE | 2022-01-08 19:10 | NUR ---
RN CLOSING NOTE PT IS IN BED SITTING UP. PT IS ON 4L NC TOLERATING WELL WITH NO SIGNS OF DISTRESS OR LABORED BREATHING 98%. PT IS A/OX4 TELE MONITORED SR- ST AT THIS TIME. PT HAS DIAPER AND USES PUREWICK -500ML. PT IS ON REGULAR DIET IV ACCESS R UA PICC LINE. BED IS LOCKED IN LOWEST POSITION X2 BED RAILS UP AND ALL HOSPITAL SAFETY MEASURES ARE IN PLACE. WILL ENDORSE TO DAIRY CLERK NURSE FOR JEANINE.
[2022-01-08 20:00] VITALS: BP 128/60
[2022-01-08] MEDS: ATORVASTATIN 10 MG TABLET PO SCH (21:00)
[2022-01-09] MEDS: ALBUTEROL FS 2.5 MG/3 ML VIAL.NEB NEB SCH ×4 (02:29→19:49)
[2022-01-09 04:00] VITALS: BP 102/55
[2022-01-09] MEDS: PIPERACILLIN /TAZOBACTAM 3.375 G in IV D5W 100 ML IV SCH (04:18)
[2022-01-09 05:55] LABS: BASOPHILS # (AUTO) 0.1 K/uL (0.0-0.2); EOSINOPHILS % (AUTO) 1.3 % (0.0-6.0); HEMATOCRIT 22 % (33-45); HEMOGLOBIN 7.3 g/dL (11.5-14.8); LYMPHOCYTES % (AUTO) 21.6 % (20.0-44.0); MEAN CORPUSCULAR HGB CONC 33 g/dl (31.0-36.0); MEAN CORPUSCULAR VOLUME 93 fL (82-100); MONOCYTES # (AUTO) 0.8 K/uL (0.1-1.30); MONOCYTES % (AUTO) 8.6 % (2.0-12.0); NEUTROPHILS # (AUTO) 6.4 K/uL (1.8-8.9); NEUTROPHILS % (AUTO) 67.5 % (43.0-81.0); PLATELET COUNT (AUTO) 410 K/uL (150-450); RED BLOOD CELL COUNT(AUTO) 2.39 MIL/uL (4.0-5.2); WHITE BLOOD COUNT (AUTO) 9.4 K/uL (4.3-11.0)
[2022-01-09 06:51] LABS: CALCIUM, SERUM 7.5 mg/dL (8.5-10.1); CREATININE 0.9 mg/dL (0.6-1.3); MAGNESIUM 2.1 mg/dL (1.8-2.4); PHOSPHORUS 2.8 mg/dL (2.5-4.9); POTASSIUM 5.1 mmol/L (3.5-5.1)
--- NOTE | 2022-01-09 06:53 | NUR ---
WORKING MANAGER CLOSING NOTE PT IN BED, ASLEEP, A/O X4, ON NC 4`LPM WITH OPTIMAL O2 SAT LEVEL, NO SOB/ACUTE DISTRESS NOTED, MS STATUS, KATRIN PICC LINE IN PLACE PATENT AND INTACT, ON ANTIBIOTICS ORDERED, OTHERWISE NO SIGNIFICANT CHANGE IN CONDITION DURING THE NIGHT, ALL SAFETY MEASURES IN PLACE, CALL LIGHT WITHIN REACH AT ALL TIMES, WILL ENDORSE CONTINUITY OF CARE TO ONCOMING NURSE.
[2022-01-09] MEDS: SUCRALFATE 1 G TABLET PO SCH ×4 (07:46→21:45)
[2022-01-09] MEDS: PANTOPRAZOLE 40 MG TABLET.DR PO SCH (07:47)
[2022-01-09 08:00] VITALS: BP 111/70
--- NOTE | 2022-01-09 08:00 | NUR ---
RN OPENING NOTE RECEIVED PT IN BED AWAKE, ALERT/ORIENTED X3 AND VERBALLY RESPONSIVE. BREATHING EVEN AND UNLABORED. . O2 AT 4 LITERS VIA NC SAT 97%.SR ON THE MONITOR . IV ACCESS ON RIGHT UA PICC LINE INTACT AND PATENT. NO S/S OF INFILTRATIONS. NO C/O PAIN OR DISCOMFORT. DUE MEDS GIVEN ORDERED NO ASE NOTED .. ALL SAFETY MEASURES IN PLACE. SIDE RAILS UP X2, BED IN LOWEST POSITION AND LOCKED. PLACE CALL LIGHT WITH IN REACH. WILL CONTINUE TO MONITOR ,PTS HAD BREAKFAST ALL NEEDS ATTENDED TOO WILL CONTINUE TO MONIITOR PTS.
[2022-01-09] MEDS: ZINC SULFATE 220 MG CAPSULE PO SCH (08:18)
[2022-01-09] MEDS: ACETAMINOPHEN 325 MG TABLET PO SCH (08:18)
[2022-01-09] MEDS: MULTIVIT W/MINERALS 1 TAB TABLET PO SCH (08:18)
[2022-01-09] MEDS: ASCORBIC ACID 500 MG TABLET PO SCH (08:19)
[2022-01-09] MEDS: ESCITALOPRAM OXALATE (10 MG) 10 MG TABLET PO SCH (08:19)
[2022-01-09] MEDS: GABAPENTIN 300 MG CAPSULE PO SCH ×3 (08:19→21:45)
[2022-01-09] MEDS: LINAGLIPTIN 5 MG TABLET PO SCH (08:19)
[2022-01-09] MEDS: QUETIAPINE FUMARATE 100 MG TABLET PO SCH ×2 (08:20→16:41)
[2022-01-09] MEDS: FLUCONAZOLE (100 MG) 100 MG TABLET PO SCH (08:20)
[2022-01-09] MEDS: LISINOPRIL (5MG) 5 MG TABLET PO SCH (08:20)
[2022-01-09] MEDS: NICOTINE PATCH (14MG) 14 MG PATCH.TD24 TD SCH (08:21)
[2022-01-09] MEDS: busPIRone 5 MG TABLET PO SCH ×2 (08:35→16:42)
[2022-01-09] MEDS: INSULIN GLARGINE, 100 UNIT/ML CARTRIDGE SQ SCH ×2 (08:35→18:09)
[2022-01-09] MEDS: INSULIN REGULAR, HUMAN 100 UNIT/ML 3 ML VIAL SQ PRN ×4 (08:43→22:10)
[2022-01-09] MEDS: BLOOD SUGAR DIAGNOSTIC 1 EACH STRIP IN SCH ×4 (08:44→22:06)
--- NOTE | 2022-01-09 08:46 | NUR ---
ms rn notes blood sugar at 730am is 136 mg/dl 25 units lantus given as ordered a nd 2 units of insulin regular per sliding scale
[2022-01-09] MEDS: Z GUARD REMEDY 4 OZ OINT TP SCH (09:37)
[2022-01-09] MEDS: CLOTRIMAZOLE/BETAMETASONE DIPROPIONATE 15 GM TUBE TP SCH ×2 (09:38→16:44)
[2022-01-09 14:00] VITALS: BP 102/55
[2022-01-09] MEDS: VIT B CMPLX 3/FA/VIT C/BIOTIN 1 TAB TABLET PO SCH (17:50)
--- NOTE | 2022-01-09 18:16 | NUR ---
ms rn notes blood sugar is 297 lantus 25 units and 6 units regular insulin given per slidind scale.
--- NOTE | 2022-01-09 19:41 | NUR ---
INCLUSION SPECIAL EDUCATOR CLOSING NOTE PT IN BED, ASLEEP, A/O X4, ON NC 4`LPM WITH OPTIMAL O2 SAT LEVEL, NO SOB/ACUTE DISTRESS NOTED, MS STATUS, KATRIN PICC LINE IN PLACE PATENT AND INTACT, OTHERWISE NO SIGNIFICANT CHANGE IN CONDITION DURING THE NIGHT, ALL SAFETY MEASURES IN PLACE, CALL LIGHT WITHIN REACH AT ALL TIMES, WILL ENDORSE CONTINUITY OF CARE TO ONCOMING NURSE.
[2022-01-09 20:00] VITALS: BP 132/66
--- NOTE | 2022-01-09 20:00 | NUR ---
MS RN NOTE PT IN BED SITTING UP. A/O X 4, NO SOB, NO DISTRESS OR DISCOMFORT NOTED. DENIES PAIN. PT REMAIN ON O2 4L VIA N/C O2 SAT 100%. KEPT HER DRY AND CLEAN. ALL NEEDS ATTENDED. VSS. CONTINUE TO MONITOR HIM.
[2022-01-09] MEDS: ATORVASTATIN 10 MG TABLET PO SCH (21:45)
[2022-01-09] MEDS: TEMAZEPAM 15 MG CAPSULE PO PRN (21:46)
[2022-01-10] MEDS: ALBUTEROL FS 2.5 MG/3 ML VIAL.NEB NEB SCH ×4 (01:47→19:51)
[2022-01-10 04:00] VITALS: BP 126/55
--- NOTE | 2022-01-10 06:36 | NUR ---
MS RN NOTE NO CHANGE IN CONDITION. PT IN NO DISTRESS OR DISCOMFORT NOTED. SIDE RAILS UP X 2 AND CALL LIGHT WITHIN REACH. WILL ENDORSE TO DAY SHIFT NURSE FOR CONTINUE TO CARE.
[2022-01-10] MEDS: SUCRALFATE 1 G TABLET PO SCH ×4 (07:30→22:31)
[2022-01-10] MEDS: PANTOPRAZOLE 40 MG TABLET.DR PO SCH (07:30)
--- NOTE | 2022-01-10 07:54 | NUR ---
MS RN NOTE PT IN BED SITTING UP. A/O X 4, NO SOB, NO DISTRESS OR DISCOMFORT NOTED. DENIES PAIN. PT REMAIN ON O2 4L VIA N/C NO SOB NOTED AT THIS TIME, KEPT HER DRY AND CLEAN. ALL NEEDS ATTENDED. . CONTINUE TO MONITOR CLOSELY, LT FA HL IN PLACE .BED IN LOWEST AND LOCKED POSITION, CALL LIGHT WITHIN REACH
[2022-01-10 09:00] VITALS: BP 139/68
[2022-01-10] MEDS: INSULIN GLARGINE, 100 UNIT/ML CARTRIDGE SQ SCH ×2 (09:00→16:23)
[2022-01-10] MEDS: INSULIN REGULAR, HUMAN 100 UNIT/ML 3 ML VIAL SQ PRN ×4 (09:19→22:32)
[2022-01-10] MEDS: GABAPENTIN 300 MG CAPSULE PO SCH ×3 (09:20→22:31)
[2022-01-10] MEDS: MULTIVIT W/MINERALS 1 TAB TABLET PO SCH (09:21)
[2022-01-10] MEDS: ASCORBIC ACID 500 MG TABLET PO SCH (09:22)
[2022-01-10] MEDS: ZINC SULFATE 220 MG CAPSULE PO SCH (09:22)
[2022-01-10] MEDS: LISINOPRIL (5MG) 5 MG TABLET PO SCH (09:23)
[2022-01-10] MEDS: ESCITALOPRAM OXALATE (10 MG) 10 MG TABLET PO SCH (09:24)
[2022-01-10] MEDS: ACETAMINOPHEN 325 MG TABLET PO SCH (09:25)
[2022-01-10] MEDS: NICOTINE PATCH (14MG) 14 MG PATCH.TD24 TD SCH (09:25)
[2022-01-10] MEDS: LINAGLIPTIN 5 MG TABLET PO SCH (09:26)
[2022-01-10] MEDS: FLUCONAZOLE (100 MG) 100 MG TABLET PO SCH (09:28)
[2022-01-10] MEDS: busPIRone 5 MG TABLET PO SCH ×2 (09:28→16:08)
[2022-01-10] MEDS: QUETIAPINE FUMARATE 100 MG TABLET PO SCH ×2 (09:29→16:08)
[2022-01-10] MEDS: CLOTRIMAZOLE/BETAMETASONE DIPROPIONATE 15 GM TUBE TP SCH ×2 (09:30→16:09)
[2022-01-10] MEDS: Z GUARD REMEDY 4 OZ OINT TP SCH (09:30)
[2022-01-10] MEDS: BLOOD SUGAR DIAGNOSTIC 1 EACH STRIP IN SCH ×4 (09:31→22:33)
[2022-01-10 09:42] LABS: CALCIUM, SERUM 7.9 mg/dL (8.5-10.1); CREATININE 0.7 mg/dL (0.6-1.3); POTASSIUM 5.4 mmol/L (3.5-5.1)
--- NOTE | 2022-01-10 10:30 | NUR ---
MS RN NOTE ROUNDS MADE , RESTING COMFORTABLY , ALL NEEDS ATTENDED ,NOT IN DISTRESS
--- NOTE | 2022-01-10 12:13 | NUR ---
ms rn note called to dr genao that k 5.4 na 131, no new order given at this time
--- NOTE | 2022-01-10 13:30 | NUR ---
ms rn note having lunch , able to eat self not in distress
[2022-01-10 16:00] VITALS: BP 122/70
--- NOTE | 2022-01-10 17:00 | NUR ---
rounds made all needs attended keep clean dry , not in distress
[2022-01-10] MEDS: VIT B CMPLX 3/FA/VIT C/BIOTIN 1 TAB TABLET PO SCH (17:13)
--- NOTE | 2022-01-10 18:49 | NUR ---
telephone order supervisor note patient in bed , on 4l nc ,no sob noted at this time, safety measure implemented resting comfortably refusing to eat dinner at this time, rt upper arm picc line in placed and flushed well with purewick in place ,able to urinate yellow color urine, bed in lowest and locked position , call light within reach
[2022-01-10 20:00] VITALS: BP 130/91
--- NOTE | 2022-01-10 20:00 | NUR ---
RN NOTE PT EATING DINNER AT THIS TIME, DENIES ANY SOB OR PAIN. ON 4L O2 VIA NC. NO SIGNS OF DISTRESS NOTED. KATRIN PICC PATENT AND INTACT, FLUSHES WELL. ALL SAFETY MEASURES IN PLACE PER PROTOCOL. WILL CONTINUE TO MONITOR.
--- NOTE | 2022-01-10 21:30 | NUR ---
RN NOTE PT COMPLAINED OF SOB, NO DISTRESS WERE NOTED. O2 SAT WAS 97%. SOB BETTER AFTER BREATHING TX GIVEN AND REPOSITIONING.
[2022-01-10] MEDS: ATORVASTATIN 10 MG TABLET PO SCH (22:33)
--- NOTE | 2022-01-10 23:15 | NUR ---
RN NOTE PT SLEEPING COMFORTABLY. O2 SAT AT 96% ON 2L. DUE MEDS WERE GIVEN ORDERED. WILL CONTINUE TO MONITOR.
[2022-01-10] MEDS: TRAMADOL HCL 50 MG TABLET PO PRN (23:31)
[2022-01-11] MEDS: ALBUTEROL FS 2.5 MG/3 ML VIAL.NEB NEB SCH ×4 (02:27→20:15)
[2022-01-11 04:00] VITALS: BP 140/54
--- NOTE | 2022-01-11 07:30 | NUR ---
RN OPENING NOTE PATIENT IS IN BED AWAKE, ON HIGH BACK REST, WITH O2 VIA NASAL CANNULA AT 3L/MIN. DENIES PAIN, BREATHING UNLABORED, AND NOT IN ANY FORM OF DISTRESS. RIGHT UPPER ARM PICC LINE INTACT AND PATENT. ALL HOSPITAL SAFETY PRECAUTIONS IN PLACE. BED IS LOCKED IN LOWEST POSITION, 3 SIDE RAILS UP, CALL LIGHT WITHIN REACH. WILL CONTINUE TO MONITOR THROUGHOUT SHIFT.
--- NOTE | 2022-01-11 07:37 | NUR ---
RN NOTE PT ABLE TO MAKE NEEDS KNOWN. TOLERATES O2 AT 2L. NOT IN ANY DISTRESS. DENIES PAIN AT THIS TIME. ALL NEEDS ATTENDED. PT HAS PUREWIC WITH 800ML URINE OUTPUT. ENDORSED TO AM SHIFT NURSE FOR JEANINE.
[2022-01-11 07:45] LABS: BASOPHILS # (AUTO) 0.1 K/uL (0.0-0.2); BASOPHILS % (AUTO) 0.9 % (0.0-2.0); EOSINOPHILS % (AUTO) 1.3 % (0.0-6.0); HEMATOCRIT 24 % (33-45); HEMOGLOBIN 8.2 g/dL (11.5-14.8); LYMPHOCYTES % (AUTO) 23.7 % (20.0-44.0); MEAN CORPUSCULAR HGB CONC 34 g/dl (31.0-36.0); MEAN CORPUSCULAR VOLUME 93 fL (82-100); MONOCYTES # (AUTO) 0.8 K/uL (0.1-1.30); MONOCYTES % (AUTO) 9.4 % (2.0-12.0); NEUTROPHILS # (AUTO) 5.5 K/uL (1.8-8.9); NEUTROPHILS % (AUTO) 64.7 % (43.0-81.0); PLATELET COUNT (AUTO) 474 K/uL (150-450); RED BLOOD CELL COUNT(AUTO) 2.62 MIL/uL (4.0-5.2); WHITE BLOOD COUNT (AUTO) 8.5 K/uL (4.3-11.0)
[2022-01-11 07:55] LABS: IRON, SERUM 14 ug/dl (50-175); TOTAL IRON BINDING CAPACITY 202 ug/dl (250-450)
[2022-01-11 08:25] LABS: CALCIUM, SERUM 8.1 mg/dL (8.5-10.1); CREATININE 0.8 mg/dL (0.6-1.3); MAGNESIUM 1.8 mg/dL (1.8-2.4); PHOSPHORUS 3.2 mg/dL (2.5-4.9); POTASSIUM 5.1 mmol/L (3.5-5.1)
[2022-01-11] MEDS: NICOTINE PATCH (14MG) 14 MG PATCH.TD24 TD SCH (08:49)
[2022-01-11] MEDS: ESCITALOPRAM OXALATE (10 MG) 10 MG TABLET PO SCH (08:50)
[2022-01-11] MEDS: ACETAMINOPHEN 325 MG TABLET PO SCH (08:51)
[2022-01-11] MEDS: GABAPENTIN 300 MG CAPSULE PO SCH ×3 (08:51→21:37)
[2022-01-11] MEDS: QUETIAPINE FUMARATE 100 MG TABLET PO SCH ×2 (08:51→16:35)
[2022-01-11] MEDS: SUCRALFATE 1 G TABLET PO SCH ×4 (08:52→21:36)
[2022-01-11] MEDS: ASCORBIC ACID 500 MG TABLET PO SCH (08:52)
[2022-01-11] MEDS: LINAGLIPTIN 5 MG TABLET PO SCH (08:52)
[2022-01-11] MEDS: MULTIVIT W/MINERALS 1 TAB TABLET PO SCH (08:52)
[2022-01-11] MEDS: PANTOPRAZOLE 40 MG TABLET.DR PO SCH (08:52)
[2022-01-11] MEDS: FLUCONAZOLE (100 MG) 100 MG TABLET PO SCH (08:53)
[2022-01-11] MEDS: LISINOPRIL (5MG) 5 MG TABLET PO SCH (08:53)
[2022-01-11] MEDS: busPIRone 5 MG TABLET PO SCH ×2 (08:53→16:36)
[2022-01-11] MEDS: INSULIN GLARGINE, 100 UNIT/ML CARTRIDGE SQ SCH ×2 (08:55→16:39)
[2022-01-11] MEDS: INSULIN REGULAR, HUMAN 100 UNIT/ML 3 ML VIAL SQ PRN ×4 (08:56→21:46)
[2022-01-11] MEDS: BLOOD SUGAR DIAGNOSTIC 1 EACH STRIP IN SCH ×4 (08:58→21:39)
[2022-01-11] MEDS: ZINC SULFATE 220 MG CAPSULE PO SCH (09:00)
[2022-01-11] MEDS: Z GUARD REMEDY 4 OZ OINT TP SCH (09:01)
[2022-01-11] MEDS: CLOTRIMAZOLE/BETAMETASONE DIPROPIONATE 15 GM TUBE TP SCH ×2 (09:02→16:42)
[2022-01-11 12:00] VITALS: BP 130/73
[2022-01-11] MEDS: VIT B CMPLX 3/FA/VIT C/BIOTIN 1 TAB TABLET PO SCH (17:41)
[2022-01-11] MEDS: TRAMADOL HCL 50 MG TABLET PO PRN (17:41)
[2022-01-11] MEDS: SOD FERRIC GLUC 125 MG in IV NS 0.9% 100 ML IV SCH (18:05)
--- NOTE | 2022-01-11 18:56 | NUR ---
RN CLOSING NOTE PATIENT REMAINED STABLE THROUGHOUT SHIFT. TOLERATES O2 AT 4L/MIN, BREATHING UNLABORED AND NOT IN ANY FORM OF DISTRESS. PICC LINE REMAINS INTACT AND PATENT. ALL HOSPITAL SAFETY PRECAUTIONS IN PLACE. WILL ENDORSE TO AUTO DAMAGE ADJUSTER NURSE.
[2022-01-11] MEDS: ATORVASTATIN 10 MG TABLET PO SCH (21:37)
[2022-01-11] MEDS: TEMAZEPAM 15 MG CAPSULE PO PRN (21:39)
[2022-01-11 22:31] VITALS: BP 122/65
[2022-01-12] MEDS: ALBUTEROL FS 2.5 MG/3 ML VIAL.NEB NEB SCH ×4 (01:57→20:45)
[2022-01-12 04:35] VITALS: BP 98/60
--- NOTE | 2022-01-12 06:40 | NUR ---
RN CLOSING NOTE PATIENT REMAINED STABLE THROUGHOUT SHIFT. TOLERATES O2 AT 3L/MIN, BREATHING UNLABORED AND NOT IN ANY FORM OF DISTRESS. PICC LINE REMAINS INTACT AND PATENT. ALL HOSPITAL SAFETY PRECAUTIONS IN PLACE. PT REFUSED LININ CHANGE X3 THIS MORNING. WILL ENDORSE CARE TO DAY SHIFT NURSE.
--- NOTE | 2022-01-12 07:22 | NUR ---
RN OPENING NOTE PATIENT IS IN BED AWAKE, ON HIGH BACK REST, WITH O2 VIA NASAL CANNULA AT 3L/MIN. DENIES PAIN, BREATHING UNLABORED, AND NOT IN ANY FORM OF DISTRESS. RIGHT UPPER ARM PICC LINE INTACT AND PATENT. ALL HOSPITAL SAFETY PRECAUTIONS IN PLACE. BED IS LOCKED IN LOWEST POSITION, 3 SIDE RAILS UP, CALL LIGHT WITHIN REACH.
[2022-01-12] MEDS: BLOOD SUGAR DIAGNOSTIC 1 EACH STRIP IN SCH ×4 (08:40→22:22)
[2022-01-12] MEDS: MULTIVIT W/MINERALS 1 TAB TABLET PO SCH (08:40)
[2022-01-12] MEDS: QUETIAPINE FUMARATE 100 MG TABLET PO SCH ×2 (08:40→17:11)
[2022-01-12] MEDS: GABAPENTIN 300 MG CAPSULE PO SCH ×3 (08:40→21:06)
[2022-01-12] MEDS: ASCORBIC ACID 500 MG TABLET PO SCH (08:40)
[2022-01-12] MEDS: ACETAMINOPHEN 325 MG TABLET PO SCH (08:40)
[2022-01-12] MEDS: FLUCONAZOLE (100 MG) 100 MG TABLET PO SCH (08:40)
[2022-01-12] MEDS: ZINC SULFATE 220 MG CAPSULE PO SCH (08:41)
[2022-01-12] MEDS: LINAGLIPTIN 5 MG TABLET PO SCH (08:41)
[2022-01-12] MEDS: busPIRone 5 MG TABLET PO SCH ×2 (08:41→17:11)
[2022-01-12] MEDS: NICOTINE PATCH (14MG) 14 MG PATCH.TD24 TD SCH (08:41)
[2022-01-12] MEDS: ESCITALOPRAM OXALATE (10 MG) 10 MG TABLET PO SCH (08:41)
[2022-01-12] MEDS: LISINOPRIL (5MG) 5 MG TABLET PO SCH (08:41)
[2022-01-12] MEDS: INSULIN REGULAR, HUMAN 100 UNIT/ML 3 ML VIAL SQ PRN ×4 (08:44→22:02)
[2022-01-12] MEDS: INSULIN GLARGINE, 100 UNIT/ML CARTRIDGE SQ SCH ×2 (08:45→17:14)
[2022-01-12] MEDS: CLOTRIMAZOLE/BETAMETASONE DIPROPIONATE 15 GM TUBE TP SCH ×2 (08:54→17:11)
[2022-01-12] MEDS: Z GUARD REMEDY 4 OZ OINT TP SCH (08:54)
[2022-01-12] MEDS: PANTOPRAZOLE 40 MG TABLET.DR PO SCH (08:55)
[2022-01-12] MEDS: SUCRALFATE 1 G TABLET PO SCH ×4 (08:55→21:05)
[2022-01-12 09:47] VITALS: BP 130/70
[2022-01-12] MEDS: SOD FERRIC GLUC 125 MG in IV NS 0.9% 100 ML IV SCH (15:05)
[2022-01-12 16:00] VITALS: BP 112/57
[2022-01-12] MEDS: VIT B CMPLX 3/FA/VIT C/BIOTIN 1 TAB TABLET PO SCH (17:11)
--- NOTE | 2022-01-12 18:10 | NUR ---
RN NOTE O2 SAT 90% INCREASED 02 FROM 3L TO 5L
--- NOTE | 2022-01-12 18:40 | NUR ---
RN CLOSING NOTE PATIENT REMAINED STABLE THROUGHOUT SHIFT. TOLERATES O2 AT 3L/MIN, BREATHING UNLABORED AND NOT IN ANY FORM OF DISTRESS. PICC LINE REMAINS INTACT AND PATENT. ALL HOSPITAL SAFETY PRECAUTIONS IN PLACE. PT REFUSED LININ CHANGE X2 THIS MORNING. WILL ENDORSE CARE TO WEAVING PROFESSOR NURSE.
[2022-01-12 20:00] VITALS: BP 133/73
--- NOTE | 2022-01-12 20:00 | NUR ---
RN OPENING NOTE RECEIVED PATIENT IN BED AWAKE,A/OX3 ON HIGH BACK REST, WITH O2 VIA NASAL CANNULA AT 3L/MIN. DENIES PAIN, BREATHING EVEN UNLABORED AND NOT IN ANY FORM OF DISTRESS. RIGHT UPPER ARM PICC LINE INTACT AND PATENT. DUE MEDS GIVEN ORDERED NO ASE NOTED TURNED AND REPOSITION .ALL NEEDS ATTENDED TOO CALL LIGHT WITHIN REACH .ALL HOSPITAL SAFETY PRECAUTIONS IN PLACE. BED IS LOCKED IN LOWEST POSITION, 3 SIDE RAILS UP, WILL CONTINUE TO MONITOR PTS.
[2022-01-12] MEDS: ATORVASTATIN 10 MG TABLET PO SCH (21:05)
[2022-01-12] MEDS: TEMAZEPAM 15 MG CAPSULE PO PRN (21:06)
--- NOTE | 2022-01-12 22:24 | NUR ---
Blood sugar for 10pm is 228mg/dl 4 units of regular insulin given per sliding scale
[2022-01-13] MEDS: ALBUTEROL FS 2.5 MG/3 ML VIAL.NEB NEB SCH ×4 (01:17→19:53)
[2022-01-13 04:00] VITALS: BP 130/69
--- NOTE | 2022-01-13 06:54 | NUR ---
RN CLOSING NOTE PATIENT REMAINED STABLE THROUGHOUT SHIFT. TOLERATES O2 AT 3L/MIN, BREATHING UNLABORED AND NOT IN ANY FORM OF DISTRESS. PICC LINE REMAINS INTACT AND PATENT. ALL HOSPITAL SAFETY PRECAUTIONS IN PLACE. PT REFUSED LAB DRAW SHE WANTS LATER . WILL ENDORSE CARE TO DAY SHIFT NURSE.
--- NOTE | 2022-01-13 07:58 | NUR ---
RN NOTE PT RECEIVED AWAKE, ALERT AND ORIENTED. NO SOB, ON O2 VIA NC @3L. WITH IV ACCESS ON KATRIN PICC IN PLACE. NO COMPLAINTS OF PAIN AND DISCOMFORT. SAFETY MAINTAINED. WILL CONT TO MONITOR.
[2022-01-13 08:00] VITALS: BP 135/72
--- NOTE | 2022-01-13 08:30 | NUR ---
RN OPENING NOTE PATIENT IS IN BED AWAKE,ALERT AND ORIENTED X4, WITH PERIODS OF FORGETFULNESS. PT WO2 VIA NASAL CANNULA AT 3L/MIN. NO SIGNS OF PAIN OR DISCOMFORT. RIGHT UPPER ARM PICC LINE INTACT AND PATENT. ALL SAFETY PRECAUTIONS IN PLACE. BED IS LOCKED IN LOWEST POSITION, 2 SIDE RAILS UP, CALL LIGHT WITHIN REACH. BEDSIDE TABLE WITHIN REACH.
[2022-01-13] MEDS: BLOOD SUGAR DIAGNOSTIC 1 EACH STRIP IN SCH ×4 (09:00→22:11)
[2022-01-13 09:40] LABS: CREATININE 0.6 mg/dL (0.6-1.3); MAGNESIUM 1.7 mg/dL (1.8-2.4); PHOSPHORUS 3.3 mg/dL (2.5-4.9); POTASSIUM 4.9 mmol/L (3.5-5.1)
[2022-01-13] MEDS: busPIRone 5 MG TABLET PO SCH ×2 (09:43→17:37)
[2022-01-13] MEDS: PANTOPRAZOLE 40 MG TABLET.DR PO SCH (09:43)
[2022-01-13] MEDS: SUCRALFATE 1 G TABLET PO SCH ×4 (09:43→22:05)
[2022-01-13] MEDS: FLUCONAZOLE (100 MG) 100 MG TABLET PO SCH (09:43)
[2022-01-13] MEDS: ESCITALOPRAM OXALATE (10 MG) 10 MG TABLET PO SCH (09:44)
[2022-01-13] MEDS: GABAPENTIN 300 MG CAPSULE PO SCH ×3 (09:44→22:06)
[2022-01-13] MEDS: QUETIAPINE FUMARATE 100 MG TABLET PO SCH ×2 (09:45→17:37)
[2022-01-13] MEDS: LINAGLIPTIN 5 MG TABLET PO SCH (09:45)
[2022-01-13] MEDS: ASCORBIC ACID 500 MG TABLET PO SCH (09:45)
[2022-01-13] MEDS: ACETAMINOPHEN 325 MG TABLET PO SCH (09:45)
[2022-01-13] MEDS: LISINOPRIL (5MG) 5 MG TABLET PO SCH (09:45)
[2022-01-13] MEDS: MULTIVIT W/MINERALS 1 TAB TABLET PO SCH (09:45)
[2022-01-13] MEDS: NICOTINE PATCH (14MG) 14 MG PATCH.TD24 TD SCH (09:46)
[2022-01-13] MEDS: ZINC SULFATE 220 MG CAPSULE PO SCH (09:46)
[2022-01-13] MEDS: INSULIN GLARGINE, 100 UNIT/ML CARTRIDGE SQ SCH ×2 (09:47→17:00)
--- NOTE | 2022-01-13 10:00 | NUR ---
RN NOTE TOOK OUT PICC LINE DUE TO CATHETER OUT. NOTIFIED NURSING VERTICAL ROLL OPERATOR IF NEW PICC LINE CAN BE PLACED. PICC IS NOT NEEDED ANYMORE. NURSING VERTICAL ROLL OPERATOR AWARE, AND PLACED NEW PERIPHERAL IV ON LEFT FOREARM.
[2022-01-13] MEDS: CLOTRIMAZOLE/BETAMETASONE DIPROPIONATE 15 GM TUBE TP SCH ×2 (10:15→18:39)
[2022-01-13] MEDS: Z GUARD REMEDY 4 OZ OINT TP SCH (10:15)
[2022-01-13 11:24] LABS: LYMPHOCYTES # (AUTO) 1.3 K/uL (0.8-4.8); MEAN CORPUSCULAR VOLUME 92 fL (82-100); MONOCYTES # (AUTO) 0.5 K/uL (0.1-1.30); NEUTROPHILS # (AUTO) 3.9 K/uL (1.8-8.9)
[2022-01-13 11:27] LABS: BASOPHILS % (AUTO) 0.8 % (0.0-2.0); HEMATOCRIT 22 % (33-45); HEMOGLOBIN 7.3 g/dL (11.5-14.8); LYMPHOCYTES % (AUTO) 22.3 % (20.0-44.0); MEAN CORPUSCULAR HGB CONC 33 g/dl (31.0-36.0); MONOCYTES % (AUTO) 8.7 % (2.0-12.0); NEUTROPHILS % (AUTO) 66.2 % (43.0-81.0); PLATELET COUNT (AUTO) 448 K/uL (150-450); RED BLOOD CELL COUNT(AUTO) 2.42 MIL/uL (4.0-5.2); WHITE BLOOD COUNT (AUTO) 5.9 K/uL (4.3-11.0)
[2022-01-13] MEDS ORDERED: BUMETANIDE INJ 2 MG in IV NS 0.9% 32 ML IV ONE (12:00)
[2022-01-13] MEDS: INSULIN REGULAR, HUMAN 100 UNIT/ML 3 ML VIAL SQ PRN ×2 (12:19→22:10)
[2022-01-13] MEDS: SOD FERRIC GLUC 125 MG in IV NS 0.9% 100 ML IV SCH (14:15)
[2022-01-13 16:00] VITALS: BP 130/77
--- NOTE | 2022-01-13 16:27 | NUR ---
rn note gave report to Laura DREW at [facility]
--- NOTE | 2022-01-13 17:20 | NUR ---
RN NOTE CALLED BACK BUSTER DREW AND SAID THAT PICC HAS RESISTANCE,CATHETHER IS NOT FLUSHING WELL. SAID WOULD REMOVE PICC LINE AND WOULD KEEP PERIPHERAL IV. BUSTER DREW AGREED AND SAID TO KEEP PERIPHERAL IV
--- NOTE | 2022-01-13 17:24 | NUR ---
RN NOTE NOTIFIED THAT [facility] YESTERDAY 8.2, NOW ITS 7.3. NO NEW ORDERS GIVEN. AWARE OF DISCHARGE.
[2022-01-13] MEDS: VIT B CMPLX 3/FA/VIT C/BIOTIN 1 TAB TABLET PO SCH (17:38)
--- NOTE | 2022-01-13 17:50 | NUR ---
rn note checked blood sugar, blood sugar 121.pt did not want to take lantus because blood sugar. educated pt still refused
--- NOTE | 2022-01-13 18:00 | NUR ---
rn note patient pending discharge. ambulance attempted to pickup patient for transport,but could not apple picking supervisor patient due to narrow gurney and size of patient.ambulance told nursing staff that their company doesn't provide batriatric gurney and to order transportation services from a different company. auditor in charge made aware and called nursing boxing and pressing supervisor.nursing boxing and pressing supervisor will speak with case management. new ambulance company will apple picking supervisor patient at 2330. notified Noah DREW at [facility] that patient will be picked up at 2330. noah drew made aware and said ok.
[2022-01-13 20:00] VITALS: BP 128/74
--- NOTE | 2022-01-13 20:00 | NUR ---
RN OPENING NOTE RECEIVED PATIENT IN BED AWAKE,A/OX3 ON HIGH BACK REST, WITH O2 VIA NASAL CANNULA AT 3L/MIN. DENIES PAIN, BREATHING EVEN UNLABORED AND NOT IN ANY FORM OF DISTRESS. IV HEPLOCK ON RIGHT WRIST INTACT AND PATENT. DUE MEDS GIVEN ORDERED NO ASE NOTED TURNED AND REPOSITION .ALL NEEDS ATTENDED TOO CALL LIGHT WITHIN REACH .ALL HOSPITAL SAFETY PRECAUTIONS IN PLACE. BED IS LOCKED IN LOWEST POSITION, 3 SIDE RAILS UP, WILL CONTINUE TO MONITOR PTS.PTS FOR DISCHARGE TO [facility] UNDER DR KIMMY PENA PTS WILL BE ON ROOM 3369, AWAITING FOR AMBULANCE TO HOME AID PTS.
--- NOTE | 2022-01-13 20:24 | NUR ---
RN CLOSING NOTE PT IS IN BED AWAKE,ALERT AND ORIENTED X4, WITH PERIODS OF FORGETFULNESS. PT WITH O2 VIA NASAL CANNULA AT 3L/MIN AT 97%. NO SIGNS OF PAIN OR DISCOMOFRT. RIGHT UPPER ARM PICC LINE INTACT AND PATENT. ALL SAFETY PRECAUTIONS IN PLACE. BED IS LOCKED IN LOWEST POSITION, 2 SIDE RAILS UP, CALL LIGHT WITHIN REACH. BEDSIDE TABLE WITHIN REACH.
[2022-01-13] MEDS ORDERED: VORICONAZOLE 200 MG TABLET PO SCH (21:00)
[2022-01-13] MEDS: ATORVASTATIN 10 MG TABLET PO SCH (22:05)
--- NOTE | 2022-01-13 22:12 | NUR ---
ms rn notes Blood sugar for 10pm is 129 mg/dl no coverage given per sliding scale
--- NOTE | 2022-01-14 00:07 | NUR ---
MS RN NOTES [facility] CAME TO SENIOR FIRMWARE ENGINEER PTS GOING TO [facility] UNDER KIMMY PENA GOING TO ROOM 3369 , REPORT GIVEN TO AMBULANCE CREW .
--- NOTE | 2022-01-14 00:12 | NUR ---
MS RN NOTES PTS LEFT THE HOSPITAL VIA AMBULANCE [facility] ,WITH 3 LITERS OF O2 VIA NC IN STABLE CONDITION , BELONGINGS WITH THE PTS.
== END 2022-01-14 00:38 | DRG 380 ==
LOC: ER 18:22 → TRANSITION 01-04 00:47 → TELE1 01-04 08:29 → MEDSG1 01-08 13:37
PROVIDERS: ADMIT Internal Medicine Nephrology; ATTEND Internal Medicine Nephrology
PROC: 0W993ZZ Drainage of Right Pleural Cavity, Percutaneous Approach (ICD-10-PCS; principal; 2022-01-05)
PROC: 30233N1 Transfusion of Nonautologous Red Blood Cells into Peripheral Vein, Percutaneous Approach (ICD-10-PCS; 2022-01-05)
PROC: 0DB68ZX Excision of Stomach, Via Natural or Artificial Opening Endoscopic, Diagnostic (ICD-10-PCS; 2022-01-07)
DX: K22.11 Ulcer of esophagus with bleeding (principal); J18.9 Pneumonia, unspecified organism; J96.91 Respiratory failure, unspecified with hypoxia; N17.9 Acute kidney failure, unspecified; J90 Pleural effusion, not elsewhere classified; J44.0 Chronic obstructive pulmonary disease with (acute) lower respiratory infection; J91.8 Pleural effusion in other conditions classified elsewhere; E66.2 Morbid (severe) obesity with alveolar hypoventilation; J81.1 Chronic pulmonary edema; B37.49 Other urogenital candidiasis; Z20.822 Contact with and (suspected) exposure to COVID-19; E88.09 Other disorders of plasma-protein metabolism, not elsewhere classified; K29.70 Gastritis, unspecified, without bleeding; I10 Essential (primary) hypertension; I25.2 Old myocardial infarction; K21.9 Gastro-esophageal reflux disease without esophagitis; Z90.710 Acquired absence of both cervix and uterus; Z98.891 History of uterine scar from previous surgery; Z91.012 Allergy to eggs; Z91.018 Allergy to other foods; F17.210 Nicotine dependence, cigarettes, uncomplicated; Z79.4 Long term (current) use of insulin; Z79.899 Other long term (current) drug therapy; Y95 Nosocomial condition; E11.65 Type 2 diabetes mellitus with hyperglycemia; Z68.39 Body mass index [BMI] 39.0-39.9, adult; E78.5 Hyperlipidemia, unspecified; I25.10 Atherosclerotic heart disease of native coronary artery without angina pectoris; D64.9 Anemia, unspecified; Z86.59 Personal history of other mental and behavioral disorders
CPT/HCPCS: 36415; 36600; 71045-TC; 80048-TC; 80202-TC; 81001; 82040-TC; 82272-TC; 82607-TC; 82728-TC; 82803-TC; 82962-TC; 83540-TC; 83605-TC; 83735-TC; 83880; 84100-TC; 84484-TC; 85025-TC; 85730-TC; 86850-TC; 87040-TC; 87070-TC; 87075-TC; 87081-TC; 87086-TC; 87102-TC; 89051-TC; 93307-TC; 94799-TC; 97110-TC; 97530-TC; C9113; C9803; G0378; J0692; J1815; J2543; J2597; J2704; J2916; J3370; J3490; J7030; J7050; J7060; P9016